=== PATIENT | male | born 1965 | race African-American/Black ===

== ENCOUNTER 2017-09-23 09:29 | Inpatient (IN) | payer OTHER ==
[2017-09-23 09:54] VITALS: BMI 26.8
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
[2017-09-23] MEDS ORDERED: MAG HYDROX/AL HYDROX/SIMETH 30 ML UNIT-DOSE CUP PO PRN (14:28)
[2017-09-23] MEDS ORDERED: MAGNESIUM HYDROX 2400MG/30ML ORAL SUSPENSION 30 ML CUP PO PRN (14:28)
[2017-09-23] MEDS ORDERED: LOPERAMIDE HCL 2 MG CAPSULE PO PRN (14:28)
[2017-09-23] MEDS ORDERED: guaiFENesin/D-METHORPHAN HB 10 ML UNIT-DOSE CUPS PO PRN (14:28)
[2017-09-23] MEDS ORDERED: MAGNESIUM CITRATE 300 ML BOTTLE PO PRN (14:28)
[2017-09-23] MEDS ORDERED: MENTHOL/PHENOL 1 EACH UD MM PRN (14:28)
[2017-09-23] MEDS ORDERED: P-EPHED 60MG/TRIPROLIDI 2.5MG TABLET PO PRN (14:28)
[2017-09-23] MEDS ORDERED: ACETAMINOPHEN 325 MG TABLET (FP) PO PRN (14:28)
[2017-09-23] MEDS ORDERED: chlordiazePOXIDE HCL 25 MG CAPSULE PO PRN (14:28)
[2017-09-23] MEDS ORDERED: chlordiazePOXIDE HCL 25 MG CAPSULE PO ONE (15:01)
[2017-09-23] MEDS: chlordiazePOXIDE HCL 25 MG CAPSULE PO SCH ×2 (17:26→22:09)
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
[2017-09-23] MEDS: DOCUSATE SODIUM 100 MG CAPSULE (FP) PO SCH (22:10)
[2017-09-23] MEDS: THIAMINE HCL 100 MG TABLET (FP) PO SCH (22:10)
[2017-09-23] MEDS: QUEtiapine FUMARATE 200 MG TABLET PO SCH (22:10)
[2017-09-23 23:21] LABS: URINE APPEARANCE TURBID; URINE BILIRUBIN NEGATIVE (NEGATIVE); URINE BLOOD NEGATIVE (NEGATIVE); URINE COLOR YELLOW; URINE GLUCOSE (UA) NEGATIVE (NEGATIVE); URINE KETONE TRACE (NEGATIVE); URINE LEUK ESTERASE NEGATIVE (NEGATIVE); URINE NITRITE NEGATIVE (NEGATIVE); URINE PROTEIN NEGATIVE (NEGATIVE)
[2017-09-24] MEDS: chlordiazePOXIDE HCL 25 MG CAPSULE PO SCH ×4 (06:38→22:13)
[2017-09-24] MEDS: DOCUSATE SODIUM 100 MG CAPSULE (FP) PO SCH ×3 (06:38→22:14)
[2017-09-24] MEDS ORDERED: PANTOPRAZOLE 40 MG TABLET (FP) PO SCH (10:00)
[2017-09-24] MEDS: PRENATAL VITAMINS W/ FOLIC ACID TABLET (FP) PO SCH (10:05)
[2017-09-24] MEDS: DIVALPROEX SODIUM 250 MG TABLET E.C. (FP) PO SCH ×2 (10:05→22:13)
[2017-09-24] MEDS: SERTRALINE HCL 50 MG TABLET (FP) PO SCH (10:05)
--- NOTE | 2017-09-24 10:33 | PN ---
S CIWA - CIWA Score Nausea/Vomitin Muscle Tremors: 3 Anxiety: 3 Agitation: 2 Paroxysmal Sweats: 3 Orientation: 0-Oriented Tacttile Disturbances: 1-Very Mild Itch/Numbness Auditory Disturbances: 1-Very Mild Visual Disturbances: 1-Very Mild Sensitivity Headache: 2-Mild CIWA-Ar Total Score: 18 BHS Progress Note (SOAP) Subjective: Shakes, sweats, irritability, abdominal cramps and leg pain Objective: 09/24/17 10:32 Vital Signs 09/24/17 09/24/17 09/24/17 03:26 06:22 09:06 Temperature 97.7 F 96.3 F L Pulse Rate 77 120 H Respiratory 18 18 20 Rate Blood Pressure 117/73 128/87 Laboratory Last Values Urine Color Yellow 09/23/17 21:00 Urine Appearance Turbid 09/23/17 21:00 Urine pH 5.0 (5.0-8.0) 09/23/17 21:00 Ur Specific [place] 1.019 (1.001-1.035) 09/23/17 21:00 Urine Protein Negative (NEGATIVE) 09/23/17 21:00 Urine Glucose (UA) Negative (NEGATIVE) 09/23/17 21:00 Urine Ketones Trace (NEGATIVE) H 09/23/17 21:00 Urine Blood Negative (NEGATIVE) 09/23/17 21:00 Urine Nitrite Negative (NEGATIVE) 09/23/17 21:00 Urine Bilirubin Negative (NEGATIVE) 09/23/17 21:00 Urine Urobilinogen 2.0 mg/dL (0.2-1.0) 09/23/17 21:00 Ur Leukocyte Esterase Negative (NEGATIVE) 09/23/17 21:00 UA noted, labs pending Assessment: 09/24/17 10:32 Withdrawal sx Plan: Continue detox
[2017-09-24 10:45] LABS: CHLORIDE 100 mmol/L (98-107); SODIUM 136 mmol/L (136-145)
[2017-09-24 10:48] LABS: HEMATOCRIT 38.5 % (35.4-49); HEMOGLOBIN 12.7 GM/dL (11.7-16.9); MEAN CELL VOLUME 93.7 fl (80-96); MEAN PLT VOLUME 9.7 fl (7.5-11.1); PLATELET COUNT 160 K/MM3 (134-434); RBC 4.11 M/mm3 (4.00-5.60); RDW 15.8 % (11.9-15.9); WHITE BLOOD COUNT 5.2 K/mm3 (4.0-10.0)
[2017-09-24 10:57] LABS: ALBUMIN 4.4 g/dl (3.4-5.0); ALK PHOS 81 U/L (45-117); ANION GAP 8 (8-16); BILIRUBIN,TOTAL 0.6 mg/dL (0.2-1.0); BLOOD UREA NITROGEN 10 mg/dL (7-18); CALCIUM 8.4 mg/dL (8.5-10.1); CO2 28 mmol/L (21-32); CREATININE 0.8 mg/dL (0.7-1.3); GLUCOSE,RANDOM 112 mg/dL (74-106); SGOT/AST 55 U/L (15-37); SGPT/ALT 68 U/L (12-78); TOT PROT 8.1 g/dl (6.4-8.2)
--- NOTE | 2017-09-24 16:58 | EKG ---
Test Reason : Blood Pressure : / mmHG Vent. Rate : 083 BPM Atrial Rate : 083 BPM P-R Int : 148 ms QRS Dur : 076 ms QT Int : 394 ms P-R-T Axes : 039 054 047 degrees QTc Int : 462 ms NORMAL SINUS RHYTHM WITH SINUS ARRHYTHMIA MODERATE VOLTAGE CRITERIA FOR LVH, MAY BE NORMAL VARIANT CANNOT RULE OUT SEPTAL INFARCT , AGE UNDETERMINED ABNORMAL ECG NO PREVIOUS ECGS AVAILABLE Confirmed by MIQUEL TOM MD ([id number]) on 09/24/2017 4:58:07 PM Referred By: Confirmed By:MIQUEL TOM MD
[2017-09-24] MEDS: IBUPROFEN 400 MG TABLET (FP) PO PRN (18:04)
[2017-09-24] MEDS: THIAMINE HCL 100 MG TABLET (FP) PO SCH (22:13)
[2017-09-24] MEDS: QUEtiapine FUMARATE 200 MG TABLET PO SCH (22:13)
[2017-09-24] MEDS: hydrOXYzine PAMOATE 50 MG CAPSULE (FP) PO PRN (22:19)
[2017-09-25] MEDS: chlordiazePOXIDE HCL 25 MG CAPSULE PO SCH ×2 (06:22→10:15)
[2017-09-25] MEDS: IBUPROFEN 400 MG TABLET (FP) PO PRN ×2 (06:23→17:42)
[2017-09-25] MEDS: DOCUSATE SODIUM 100 MG CAPSULE (FP) PO SCH ×3 (06:23→23:04)
[2017-09-25] MEDS: PANTOPRAZOLE 40 MG TABLET (FP) PO SCH (08:19)
--- NOTE | 2017-09-25 10:11 | PN ---
Psychiatric Progress Note Vital Signs: Vital Signs Period Temp Pulse Resp BP Sys/Traylor Pulse Ox Last 24 Hr 97.2 F-98.3 F 67-96 16-20 108-135/62-80 Date of Session: 09/25/17 Chief Complaint:: Follow up HPI: Patient with history of Schizoaffective Disorder, pplysubstance dependence admitted on 09/23/11 for alcohol detoxification Current Medications: Active Medications Generic Name Dose Route Start Last Admin Trade Name Freq PRN Reason Stop Dose Admin Acetaminophen 650 mg 09/23/17 14:28 Tylenol - PO Q4H PRN FEVER Al Hydroxide/Mg Hydroxide 30 ml 09/23/17 14:28 Mylanta Oral Suspension - PO Q6H PRN DYSPEPSIA Chlordiazepoxide HCl 25 mg 09/24/17 17:00 09/25/17 06:22 Librium - PO 09/25/17 11:01 25 mg [id number] JUSTYNA Administration Chlordiazepoxide HCl 15 mg 09/25/17 17:00 Librium - PO 09/26/17 11:01 [id number] JUSTYNA Chlordiazepoxide HCl 25 mg 09/23/17 14:28 09/24/17 07:29 Librium - PO 09/26/17 14:27 25 mg Q4H PRN Administration WITHDRAWAL(CONT SUBST) Chlordiazepoxide HCl 10 mg 09/26/17 17:00 Librium - PO 09/27/17 11:01 [id number] JUSTYNA Divalproex Sodium 250 mg 09/24/17 10:00 09/24/17 22:13 Depakote - PO 250 mg BID JUSTYNA Administration Docusate Sodium 100 mg 09/23/17 22:00 09/25/17 06:23 Colace - PO 100 mg TID JUSTYNA Administration Eucalyptus/Menthol/Phenol/Sorbitol 1 each 09/23/17 14:28 Cepastat Lozenge - MM Q4H PRN SORE THROAT Guaifenesin 10 ml 09/23/17 14:28 Robitussin Dm - PO Q6H PRN COUGH Hydroxyzine Pamoate 50 mg 09/23/17 14:28 09/24/17 22:19 Vistaril - PO 50 mg Q4H PRN Administration AGITATION Ibuprofen 400 mg 09/23/17 14:28 09/25/17 06:23 Motrin - PO 400 mg Q6H PRN Administration PAIN LEVEL 4-6 Loperamide HCl 4 mg 09/23/17 14:28 Imodium - PO Q6H PRN DIARRHEA Magnesium Citrate 300 ml 09/23/17 14:28 Citroma - PO Q48H PRN CONSTIPATION Magnesium Hydroxide 30 ml 09/23/17 14:28 Milk Of Magnesia - PO DAILY PRN CONSTIPATION Pantoprazole Sodium 40 mg 09/25/17 07:00 09/25/17 08:19 Protonix - PO 40 mg DAILY@0700 JUSTYNA Administration Multivit/Folic Acid/Iron 1 tab 09/24/17 10:00 09/24/17 10:05 Vitamins (Sjr) - PO 1 tab DAILY JUSTYNA Administration Pseudoephedrine/Triprolidine 1 combo 09/23/17 14:28 Actifed - PO TID PRN NASAL CONGESTION Quetiapine Fumarate 200 mg 09/23/17 22:00 09/24/17 22:13 Seroquel - PO 200 mg HS UJSTYNA Administration Sertraline HCl 100 mg 09/24/17 10:00 09/24/17 10:05 Zoloft - PO 100 mg DAILY JUSTYNA Administration Thiamine HCl 100 mg 09/23/17 22:00 09/24/17 22:13 Vitamin B1 - PO 100 mg HS JUSTYNA Administration Medication(s) Change(s): Increase Seroquel dosage to 100 mg daily & 300 mg HS Current Side Effect: No Lab tests ordered: Yes Lab tests reviewed: Yes Provider note:: Patient requests that his Seroquel dosage be adjusted. He said that he was on Seroquel 200 mg daily & 400 mg HS prior to current admission. He saw a psychiatrist on admission who ordered Seroquel 200 mg po HS with the promise to gradually raise dosage to prior to admission dose. He complains that he is still geeting 200 mg po HS. Requests that Seroquel be increased to 100 mg daily & 300 mg HS Total face to face time:: 25 Mental Status Exam - Mental Status Exam Alert and Oriented to: Time, Place, Person Cognitive Function: Fair Mood: Hopeful, Euthymic Affect: Appropriate Patient Behavior: Cooperative Speech Pattern: Clear Voice Loudness: Normal Thought Process: Intact, Goal Oriented Hallucinations: Denies Homicidal Ideation: Denies Insight/Judgement: Fair, Poor Sleep: Poorly Appetite: Good Muscle strength/Tone: Normal Gait/Station: Normal Psychiatric Treatment Plan - Problem List (1) Schizoaffective disorder Current Visit: Yes (2) Alcohol dependence with uncomplicated withdrawal Current Visit: Yes (3) Cannabis dependence Current Visit: Yes (4) Nicotine dependence Current Visit: Yes Qualifiers: Nicotine product type: cigarettes Substance use status: uncomplicated Qualified Code(s): F17.210 - Nicotine dependence, cigarettes, uncomplicated Initial treatment plan: 1) Discontinue Seroquel 200 mg po HS. 2) Start Seroquel 100 mg daily & 300 mg HS. 3) Continue inpatient detoxification
[2017-09-25] MEDS: SERTRALINE HCL 50 MG TABLET (FP) PO SCH (10:15)
[2017-09-25] MEDS: PRENATAL VITAMINS W/ FOLIC ACID TABLET (FP) PO SCH (10:15)
[2017-09-25] MEDS: DIVALPROEX SODIUM 250 MG TABLET E.C. (FP) PO SCH ×2 (10:15→23:05)
[2017-09-25] MEDS: QUEtiapine FUMARATE 100 MG TABLET (FP) PO SCH (12:42)
--- NOTE | 2017-09-25 14:25 | PN ---
S CIWA - CIWA Score Nausea/Vomitin Muscle Tremors: 3 Anxiety: 3 Agitation: 3 Paroxysmal Sweats: 2 Orientation: 0-Oriented Tacttile Disturbances: 0-None Auditory Disturbances: 0-None Visual Disturbances: 0-None Headache: 2-Mild CIWA-Ar Total Score: 15 S Progress Note (SOAP) Subjective: Headaches Sweats Tremors Objective: 09/25/17 14:23 no acute distress Laboratory Last Values WBC 5.2 K/mm3 (4.0-10.0) 09/24/17 06:00 RBC 4.11 M/mm3 (4.00-5.60) 09/24/17 06:00 Hgb 12.7 GM/dL (11.7-16.9) 09/24/17 06:00 Hct 38.5 % (35.4-49) 09/24/17 06:00 MCV 93.7 fl (80-96) 09/24/17 06:00 MCH 31.0 pg (25.7-33.7) 09/24/17 06:00 MCHC 33.0 g/dl (32.0-35.9) 09/24/17 06:00 RDW 15.8 % (11.9-15.9) 09/24/17 06:00 Plt Count 160 K/MM3 (134-434) 09/24/17 06:00 MPV 9.7 fl (7.5-11.1) 09/24/17 06:00 Sodium 136 mmol/L (136-145) 09/24/17 06:00 Potassium 4.0 mmol/L (3.5-5.1) 09/24/17 06:00 Chloride 100 mmol/L (98-107) 09/24/17 06:00 Carbon Dioxide 28 mmol/L (21-32) 09/24/17 06:00 Anion Gap 8 (8-16) 09/24/17 06:00 BUN 10 mg/dL (7-18) D 09/24/17 06:00 Creatinine 0.8 mg/dL (0.7-1.3) 09/24/17 06:00 Creat Clearance w eGFR > 60 (>60) 09/24/17 06:00 Random Glucose 112 mg/dL (74-106) H 09/24/17 06:00 Calcium 8.4 mg/dL (8.5-10.1) L 09/24/17 06:00 Total Bilirubin 0.6 mg/dL (0.2-1.0) 09/24/17 06:00 AST 55 U/L (15-37) H D 09/24/17 06:00 ALT 68 U/L (12-78) D 09/24/17 06:00 Alkaline Phosphatase 81 U/L (45-117) D 09/24/17 06:00 Total Protein 8.1 g/dl (6.4-8.2) 09/24/17 06:00 Albumin 4.4 g/dl (3.4-5.0) 09/24/17 06:00 Urine Color Yellow 09/23/17 21:00 Urine Appearance Turbid 09/23/17 21:00 Urine pH 5.0 (5.0-8.0) 09/23/17 21:00 Ur Specific [place] 1.019 (1.001-1.035) 09/23/17 21:00 Urine Protein Negative (NEGATIVE) 09/23/17 21:00 Urine Glucose (UA) Negative (NEGATIVE) 09/23/17 21:00 Urine Ketones Trace (NEGATIVE) H 09/23/17 21:00 Urine Blood Negative (NEGATIVE) 09/23/17 21:00 Urine Nitrite Negative (NEGATIVE) 09/23/17 21:00 Urine Bilirubin Negative (NEGATIVE) 09/23/17 21:00 Urine Urobilinogen 2.0 mg/dL (0.2-1.0) 09/23/17 21:00 Ur Leukocyte Esterase Negative (NEGATIVE) 09/23/17 21:00 Valproic Acid < 3.000 ug/ml (50-100) L 09/24/17 09:00 RPR Titer Nonreactive (NONREACTIVE) 09/24/17 06:00 labs noted Vital Signs Temperature 97.9 F 09/25/17 14:09 Pulse Rate 87 09/25/17 14:09 Respiratory Rate 16 09/25/17 14:09 Blood Pressure 134/86 09/25/17 14:09 O2 Sat by Pulse Oximetry (%) Assessment: 09/25/17 14:24 withdrawal sx Plan: continue detox Increase fluid intake
[2017-09-25] MEDS: chlordiazePOXIDE 5 MG CAPSULE PO SCH ×2 (17:40→23:05)
[2017-09-25] MEDS: QUEtiapine FUMARATE 300 MG TABLET PO SCH (23:04)
[2017-09-25] MEDS: THIAMINE HCL 100 MG TABLET (FP) PO SCH (23:05)
[2017-09-26] MEDS: DOCUSATE SODIUM 100 MG CAPSULE (FP) PO SCH ×3 (06:13→22:42)
[2017-09-26] MEDS: PANTOPRAZOLE 40 MG TABLET (FP) PO SCH (06:13)
[2017-09-26] MEDS: chlordiazePOXIDE 5 MG CAPSULE PO SCH ×2 (06:13→11:55)
[2017-09-26] MEDS: IBUPROFEN 400 MG TABLET (FP) PO PRN (06:15)
--- NOTE | 2017-09-26 11:43 | PN ---
BHS Progress Note (SOAP) Subjective: ANXIETY,SWEATS, ITCHY RASH BOTH SHOULDERS. Objective: 09/26/17 11:43 Vital Signs Temperature 96.4 F L 09/26/17 09:19 Pulse Rate 100 H 09/26/17 09:19 Respiratory Rate 18 09/26/17 09:19 Blood Pressure 126/76 09/26/17 09:19 O2 Sat by Pulse Oximetry (%) Laboratory Last Values WBC 5.2 K/mm3 (4.0-10.0) 09/24/17 06:00 RBC 4.11 M/mm3 (4.00-5.60) 09/24/17 06:00 Hgb 12.7 GM/dL (11.7-16.9) 09/24/17 06:00 Hct 38.5 % (35.4-49) 09/24/17 06:00 MCV 93.7 fl (80-96) 09/24/17 06:00 MCH 31.0 pg (25.7-33.7) 09/24/17 06:00 MCHC 33.0 g/dl (32.0-35.9) 09/24/17 06:00 RDW 15.8 % (11.9-15.9) 09/24/17 06:00 Plt Count 160 K/MM3 (134-434) 09/24/17 06:00 MPV 9.7 fl (7.5-11.1) 09/24/17 06:00 Sodium 136 mmol/L (136-145) 09/24/17 06:00 Potassium 4.0 mmol/L (3.5-5.1) 09/24/17 06:00 Chloride 100 mmol/L (98-107) 09/24/17 06:00 Carbon Dioxide 28 mmol/L (21-32) 09/24/17 06:00 Anion Gap 8 (8-16) 09/24/17 06:00 BUN 10 mg/dL (7-18) D 09/24/17 06:00 Creatinine 0.8 mg/dL (0.7-1.3) 09/24/17 06:00 Creat Clearance w eGFR > 60 (>60) 09/24/17 06:00 Random Glucose 112 mg/dL (74-106) H 09/24/17 06:00 Calcium 8.4 mg/dL (8.5-10.1) L 09/24/17 06:00 Total Bilirubin 0.6 mg/dL (0.2-1.0) 09/24/17 06:00 AST 55 U/L (15-37) H D 09/24/17 06:00 ALT 68 U/L (12-78) D 09/24/17 06:00 Alkaline Phosphatase 81 U/L (45-117) D 09/24/17 06:00 Total Protein 8.1 g/dl (6.4-8.2) 09/24/17 06:00 Albumin 4.4 g/dl (3.4-5.0) 09/24/17 06:00 Urine Color Yellow 09/23/17 21:00 Urine Appearance Turbid 09/23/17 21:00 Urine pH 5.0 (5.0-8.0) 09/23/17 21:00 Ur Specific [place] 1.019 (1.001-1.035) 09/23/17 21:00 Urine Protein Negative (NEGATIVE) 09/23/17 21:00 Urine Glucose (UA) Negative (NEGATIVE) 09/23/17 21:00 Urine Ketones Trace (NEGATIVE) H 09/23/17 21:00 Urine Blood Negative (NEGATIVE) 09/23/17 21:00 Urine Nitrite Negative (NEGATIVE) 09/23/17 21:00 Urine Bilirubin Negative (NEGATIVE) 09/23/17 21:00 Urine Urobilinogen 2.0 mg/dL (0.2-1.0) 09/23/17 21:00 Ur Leukocyte Esterase Negative (NEGATIVE) 09/23/17 21:00 Valproic Acid < 3.000 ug/ml (50-100) L 09/24/17 09:00 RPR Titer Nonreactive (NONREACTIVE) 09/24/17 06:00 Assessment: 09/26/17 11:43 WITHDRAWAL SX Plan: CONTINUE DETOX
[2017-09-26] MEDS: SERTRALINE HCL 50 MG TABLET (FP) PO SCH (11:55)
[2017-09-26] MEDS: QUEtiapine FUMARATE 100 MG TABLET (FP) PO SCH (11:56)
[2017-09-26] MEDS: DIVALPROEX SODIUM 250 MG TABLET E.C. (FP) PO SCH ×2 (11:56→22:42)
[2017-09-26] MEDS: PRENATAL VITAMINS W/ FOLIC ACID TABLET (FP) PO SCH (11:56)
[2017-09-26] MEDS: chlordiazePOXIDE HCL 10 MG CAPSULE PO SCH ×2 (17:38→22:42)
[2017-09-26] MEDS: QUEtiapine FUMARATE 300 MG TABLET PO SCH (22:42)
[2017-09-26] MEDS: THIAMINE HCL 100 MG TABLET (FP) PO SCH (22:43)
[2017-09-26] MEDS: hydrOXYzine PAMOATE 50 MG CAPSULE (FP) PO PRN (22:44)
[2017-09-27] MEDS: DOCUSATE SODIUM 100 MG CAPSULE (FP) PO SCH (06:23)
[2017-09-27] MEDS: chlordiazePOXIDE HCL 10 MG CAPSULE PO SCH ×2 (06:23→10:46)
[2017-09-27] MEDS: PANTOPRAZOLE 40 MG TABLET (FP) PO SCH (06:24)
[2017-09-27] MEDS: IBUPROFEN 400 MG TABLET (FP) PO PRN (08:06)
[2017-09-27] MEDS: DIVALPROEX SODIUM 250 MG TABLET E.C. (FP) PO SCH (09:50)
[2017-09-27] MEDS: SERTRALINE HCL 50 MG TABLET (FP) PO SCH (09:50)
[2017-09-27] MEDS: PRENATAL VITAMINS W/ FOLIC ACID TABLET (FP) PO SCH (09:50)
[2017-09-27] MEDS: QUEtiapine FUMARATE 100 MG TABLET (FP) PO SCH (09:50)
[2017-09-27 10:09] VITALS: BP 133/87; PULSE 95; TEMP 96.2
--- NOTE | 2017-09-27 10:49 | DS ---
[facility] Detox Discharge Summary Admission Date: 09/23/17 Discharge Date: 09/27/17 - History Present History: Alcohol Dependence, Cannabis Dependence Additional Comments: DETOX COMPLETED. ALERT O X 3. NAD. Pertinent Past History: SEE DX BELOW - Physical Exam Results Vital Signs: Vital Signs Temperature 96.2 F L 09/27/17 10:08 Pulse Rate 95 H 09/27/17 10:08 Respiratory Rate 18 09/27/17 10:08 Blood Pressure 133/87 09/27/17 10:08 O2 Sat by Pulse Oximetry (%) Pertinent Admission Physical Exam Findings: WITHDRAWAL SX Laboratory Last Values WBC 5.2 K/mm3 (4.0-10.0) 09/24/17 06:00 RBC 4.11 M/mm3 (4.00-5.60) 09/24/17 06:00 Hgb 12.7 GM/dL (11.7-16.9) 09/24/17 06:00 Hct 38.5 % (35.4-49) 09/24/17 06:00 MCV 93.7 fl (80-96) 09/24/17 06:00 MCH 31.0 pg (25.7-33.7) 09/24/17 06:00 MCHC 33.0 g/dl (32.0-35.9) 09/24/17 06:00 RDW 15.8 % (11.9-15.9) 09/24/17 06:00 Plt Count 160 K/MM3 (134-434) 09/24/17 06:00 MPV 9.7 fl (7.5-11.1) 09/24/17 06:00 Sodium 136 mmol/L (136-145) 09/24/17 06:00 Potassium 4.0 mmol/L (3.5-5.1) 09/24/17 06:00 Chloride 100 mmol/L (98-107) 09/24/17 06:00 Carbon Dioxide 28 mmol/L (21-32) 09/24/17 06:00 Anion Gap 8 (8-16) 09/24/17 06:00 BUN 10 mg/dL (7-18) D 09/24/17 06:00 Creatinine 0.8 mg/dL (0.7-1.3) 09/24/17 06:00 Creat Clearance w eGFR > 60 (>60) 09/24/17 06:00 Random Glucose 112 mg/dL (74-106) H 09/24/17 06:00 Calcium 8.4 mg/dL (8.5-10.1) L 09/24/17 06:00 Total Bilirubin 0.6 mg/dL (0.2-1.0) 09/24/17 06:00 AST 55 U/L (15-37) H D 09/24/17 06:00 ALT 68 U/L (12-78) D 09/24/17 06:00 Alkaline Phosphatase 81 U/L (45-117) D 09/24/17 06:00 Total Protein 8.1 g/dl (6.4-8.2) 09/24/17 06:00 Albumin 4.4 g/dl (3.4-5.0) 09/24/17 06:00 Urine Color Yellow 09/23/17 21:00 Urine Appearance Turbid 09/23/17 21:00 Urine pH 5.0 (5.0-8.0) 09/23/17 21:00 Ur Specific [place] 1.019 (1.001-1.035) 09/23/17 21:00 Urine Protein Negative (NEGATIVE) 09/23/17 21:00 Urine Glucose (UA) Negative (NEGATIVE) 09/23/17 21:00 Urine Ketones Trace (NEGATIVE) H 09/23/17 21:00 Urine Blood Negative (NEGATIVE) 09/23/17 21:00 Urine Nitrite Negative (NEGATIVE) 09/23/17 21:00 Urine Bilirubin Negative (NEGATIVE) 09/23/17 21:00 Urine Urobilinogen 2.0 mg/dL (0.2-1.0) 09/23/17 21:00 Ur Leukocyte Esterase Negative (NEGATIVE) 09/23/17 21:00 Valproic Acid < 3.000 ug/ml (50-100) L 09/24/17 09:00 RPR Titer Nonreactive (NONREACTIVE) 09/24/17 06:00 - Treatment Hospital Course: Detox Protocol Followed, Detoxed Safely, Responded well, Discharged Condition Good - Medication Discharge Medications: Ambulatory Orders Docusate Sodium [Colace -] 100 mg PO TID #90 capsule 12/07/13 Esomeprazole Mag Trihydrate [Nexium] 40 mg PO DAILY #30 capsule.ec 12/07/13 Divalproex [Depakote -] 500 mg PO BID #60 tablet.ec 12/26/14 Quetiapine Fumarate [Seroquel -] 200 mg PO DAILY #30 tablet 12/26/14 Quetiapine Fumarate [Seroquel -] 400 mg PO HS #30 tablet 12/26/14 Trazodone HCl [Desyrel -] 200 mg PO HS #30 tablet 12/26/14 Sertraline HCl [Zoloft -] 100 mg PO DAILY 09/23/17 - Diagnosis (1) Alcohol dependence with uncomplicated withdrawal Current Visit: Yes Status: Acute (2) Use of cane as ambulatory aid Current Visit: Yes Status: Chronic (3) Nicotine dependence Current Visit: Yes Status: Acute Qualifiers: Nicotine product type: cigarettes Substance use status: uncomplicated Qualified Code(s): F17.210 - Nicotine dependence, cigarettes, uncomplicated (4) ARTHRITS Current Visit: Yes Status: Chronic (5) GERD (gastroesophageal reflux disease) Current Visit: Yes Status: Chronic Qualifiers: Esophagitis presence: esophagitis presence not specified Qualified Code(s) : K21.9 - Gastro-esophageal reflux disease without esophagitis (6) History of total bilateral knee replacement Current Visit: Yes Status: Chronic (7) Constipation by delayed colonic transit Current Visit: Yes Status: Chronic - AMA Did Patient Leave Against Medical Advice: No
== END 2017-09-27 11:55 | disposition home or self-care (01) | DRG 775 ==
LOC: YASAS 09:29 → Y3N 12:51
PROVIDERS: ADMIT Internal Medicine; ATTEND Internal Medicine
PROC: HZ2ZZZZ Detoxification Services for Substance Abuse Treatment (ICD-10-PCS; principal; 2017-09-23)
DX: F10.230 Alcohol dependence with withdrawal, uncomplicated (principal); F12.20 Cannabis dependence, uncomplicated; F17.210 Nicotine dependence, cigarettes, uncomplicated; F25.9 Schizoaffective disorder, unspecified; F31.9 Bipolar disorder, unspecified; F41.9 Anxiety disorder, unspecified; K59.01 Slow transit constipation; K21.9 Gastro-esophageal reflux disease without esophagitis; M19.90 Unspecified osteoarthritis, unspecified site; G47.00 Insomnia, unspecified; R26.2 Difficulty in walking, not elsewhere classified; Z99.89 Dependence on other enabling machines and devices; Z88.0 Allergy status to penicillin; Z96.653 Presence of artificial knee joint, bilateral; Z59.0 Homelessness
CPT/HCPCS: 36415; 80053; 80164; 81003; 85027; 86593; 93005; 93010

== ENCOUNTER 2017-09-27 12:16 | Inpatient (IN) | payer OTHER ==
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
[2017-09-27] MEDS ORDERED: QUEtiapine FUMARATE 100 MG TABLET (FP) PO ONE (15:18)
--- NOTE | 2017-09-27 16:17 | HP ---
[facility] Rehab Assess/Revision - Admission History Admitted to Rehab from: [facility] Date of Admission to Rehab: 09/27/17 - Vital signs Vital Signs: Vital Signs Period Temp Pulse Resp BP Sys/Traylor Pulse Ox Last 24 Hr 97.3 F 18 121/73 - Findings Detox History & Physical reviewed: Yes Concur with findings: Yes Comments/Additional Findings: transferred from detox to rehab admission as per protocol Inpatient Rehab Admission - Initial Determination Are CD services needed?: Yes Free of communicable disease: Yes Not in need of hospitalization: Yes - Rehab Admission Criteria Previous failed treatment: Yes Poor recovery environment: Yes Comorbidities: Yes Lacks judgement: No Patient is meeting Inpatient Rehab admission criteria:: Yes
[2017-09-27] MEDS ORDERED: P-EPHED 60MG/TRIPROLIDI 2.5MG TABLET PO PRN (16:18)
[2017-09-27] MEDS ORDERED: MAG HYDROX/AL HYDROX/SIMETH 30 ML UNIT-DOSE CUP PO PRN (16:18)
[2017-09-27] MEDS ORDERED: NICOTINE POLACRILEX 2 MG GUM BUC PRN (16:18)
[2017-09-27] MEDS ORDERED: LOPERAMIDE HCL 2 MG CAPSULE PO PRN (16:18)
[2017-09-27] MEDS ORDERED: MAGNESIUM CITRATE 300 ML BOTTLE PO PRN (16:18)
[2017-09-27] MEDS ORDERED: guaiFENesin/D-METHORPHAN HB 10 ML UNIT-DOSE CUPS PO PRN (16:18)
[2017-09-27] MEDS ORDERED: IBUPROFEN 400 MG TABLET (FP) PO PRN (16:18)
[2017-09-27] MEDS ORDERED: MENTHOL/PHENOL 1 EACH UD MM PRN (16:18)
[2017-09-27] MEDS ORDERED: NICOTINE 14 MG/24 HOURS TOPICAL PATCH TD PRN (17:00)
[2017-09-27] MEDS: traZODone HCL 100 MG TABLET (FP) PO SCH (21:32)
[2017-09-27] MEDS: QUEtiapine FUMARATE 400 MG TABLET PO SCH (21:32)
[2017-09-27] MEDS: THIAMINE HCL 100 MG TABLET (FP) PO SCH (21:32)
[2017-09-27] MEDS: DIVALPROEX SODIUM 500 MG TABLET E.C. PO SCH (21:32)
[2017-09-27] MEDS: DOCUSATE SODIUM 100 MG CAPSULE (FP) PO SCH (21:32)
[2017-09-28] MEDS: DOCUSATE SODIUM 100 MG CAPSULE (FP) PO SCH ×3 (06:00→22:22)
[2017-09-28] MEDS ORDERED: SERTRALINE HCL 50 MG TABLET (FP) PO SCH (10:00)
[2017-09-28] MEDS: PRENATAL VITAMINS W/ FOLIC ACID TABLET (FP) PO SCH (10:10)
[2017-09-28] MEDS: PANTOPRAZOLE 40 MG TABLET (FP) PO SCH (10:11)
[2017-09-28] MEDS: DIVALPROEX SODIUM 500 MG TABLET E.C. PO SCH ×2 (10:11→22:22)
[2017-09-28] MEDS: QUEtiapine FUMARATE 200 MG TABLET PO SCH (10:11)
--- NOTE | 2017-09-28 13:25 | PN ---
S Progress Note Note: patient reports was on Zoloft 200 mg po daily and asked to adjust the dosage, will increase to 200 mg po daily.
[2017-09-28] MEDS ORDERED: SENNOSIDES 8.6MG TABLET (FP) PO ONE (14:31)
--- NOTE | 2017-09-28 14:37 | PN ---
[facility] Progress Note (SOAP) Subjective: c/o constipation Objective: 09/28/17 14:36 Vital Signs - 24 hr 09/28/17 09/28/17 09/28/17 00:30 03:30 06:38 Temperature 97.6 F Pulse Rate 116 H Respiratory 20 20 18 Rate Blood Pressure 122/81 Laboratory Tests 09/28/17 05:45 HIV 1&2 Antibody Screen Negative HIV P24 Antigen Negative labs reveiwed Assessment: 09/28/17 14:37 constipation 2/2 medication colace and senna qhs
[2017-09-28] MEDS: NAPROXEN 500 MG TABLET (FP) PO SCH ×2 (14:55→22:23)
[2017-09-28] MEDS: LIDOCAINE 5% TOPICAL PATCH TP SCH (14:55)
[2017-09-28] MEDS: LIDOCAINE PATCH REMOVAL MC SCH (22:22)
[2017-09-28] MEDS: traZODone HCL 100 MG TABLET (FP) PO SCH (22:22)
[2017-09-28] MEDS: SENNOSIDES 8.6MG TABLET (FP) PO SCH (22:23)
[2017-09-28] MEDS: THIAMINE HCL 100 MG TABLET (FP) PO SCH (22:23)
[2017-09-28] MEDS: QUEtiapine FUMARATE 400 MG TABLET PO SCH (22:23)
[2017-09-29] MEDS: DOCUSATE SODIUM 100 MG CAPSULE (FP) PO SCH ×2 (00:22→21:28)
[2017-09-29] MEDS: traZODone HCL 100 MG TABLET (FP) PO SCH ×2 (00:22→21:28)
[2017-09-29] MEDS: SENNOSIDES 8.6MG TABLET (FP) PO SCH ×2 (00:22→21:27)
[2017-09-29] MEDS: NAPROXEN 500 MG TABLET (FP) PO SCH ×3 (00:22→21:27)
[2017-09-29] MEDS: DIVALPROEX SODIUM 500 MG TABLET E.C. PO SCH ×3 (00:23→21:27)
[2017-09-29] MEDS: QUEtiapine FUMARATE 400 MG TABLET PO SCH ×2 (00:23→21:29)
[2017-09-29] MEDS: ACETAMINOPHEN 325 MG TABLET (FP) PO PRN (06:47)
[2017-09-29] MEDS: LIDOCAINE 5% TOPICAL PATCH TP SCH (10:40)
[2017-09-29] MEDS: SERTRALINE HCL 50 MG TABLET (FP) PO SCH (10:40)
[2017-09-29] MEDS: PANTOPRAZOLE 40 MG TABLET (FP) PO SCH (10:40)
[2017-09-29] MEDS: QUEtiapine FUMARATE 200 MG TABLET PO SCH (10:40)
[2017-09-29] MEDS: PRENATAL VITAMINS W/ FOLIC ACID TABLET (FP) PO SCH (10:40)
[2017-09-29] MEDS: THIAMINE HCL 100 MG TABLET (FP) PO SCH (21:27)
[2017-09-29] MEDS: LIDOCAINE PATCH REMOVAL MC SCH (21:29)
[2017-09-30] MEDS: HYDROCORTISONE 0.5% TOPICAL CREAM 30 GM TUBE TP PRN (06:57)
[2017-09-30] MEDS: ACETAMINOPHEN 325 MG TABLET (FP) PO PRN (07:01)
[2017-09-30] MEDS: DIVALPROEX SODIUM 500 MG TABLET E.C. PO SCH ×2 (11:28→21:51)
[2017-09-30] MEDS: PANTOPRAZOLE 40 MG TABLET (FP) PO SCH (11:28)
[2017-09-30] MEDS: NAPROXEN 500 MG TABLET (FP) PO SCH ×2 (11:28→21:50)
[2017-09-30] MEDS: QUEtiapine FUMARATE 200 MG TABLET PO SCH (11:28)
[2017-09-30] MEDS: LIDOCAINE 5% TOPICAL PATCH TP SCH (11:29)
[2017-09-30] MEDS: SERTRALINE HCL 50 MG TABLET (FP) PO SCH (11:29)
[2017-09-30] MEDS: PRENATAL VITAMINS W/ FOLIC ACID TABLET (FP) PO SCH (11:32)
[2017-09-30] MEDS: MAGNESIUM HYDROX 2400MG/30ML ORAL SUSPENSION 30 ML CUP PO PRN (11:35)
[2017-09-30] MEDS: THIAMINE HCL 100 MG TABLET (FP) PO SCH (21:50)
[2017-09-30] MEDS: DOCUSATE SODIUM 100 MG CAPSULE (FP) PO SCH (21:50)
[2017-09-30] MEDS: traZODone HCL 100 MG TABLET (FP) PO SCH (21:51)
[2017-09-30] MEDS: SENNOSIDES 8.6MG TABLET (FP) PO SCH (21:51)
[2017-09-30] MEDS: LIDOCAINE PATCH REMOVAL MC SCH (21:52)
[2017-09-30] MEDS: QUEtiapine FUMARATE 400 MG TABLET PO SCH (21:52)
[2017-10-01] MEDS: QUEtiapine FUMARATE 200 MG TABLET PO SCH (09:58)
[2017-10-01] MEDS: PRENATAL VITAMINS W/ FOLIC ACID TABLET (FP) PO SCH (09:58)
[2017-10-01] MEDS: NAPROXEN 500 MG TABLET (FP) PO SCH ×2 (09:58→22:43)
[2017-10-01] MEDS: SERTRALINE HCL 50 MG TABLET (FP) PO SCH (09:58)
[2017-10-01] MEDS: DIVALPROEX SODIUM 500 MG TABLET E.C. PO SCH ×2 (09:58→22:43)
[2017-10-01] MEDS: LIDOCAINE 5% TOPICAL PATCH TP SCH (09:59)
[2017-10-01] MEDS: PANTOPRAZOLE 40 MG TABLET (FP) PO SCH (09:59)
[2017-10-01] MEDS: MAGNESIUM HYDROX 2400MG/30ML ORAL SUSPENSION 30 ML CUP PO PRN (11:45)
[2017-10-01] MEDS: THIAMINE HCL 100 MG TABLET (FP) PO SCH (22:43)
[2017-10-01] MEDS: DOCUSATE SODIUM 100 MG CAPSULE (FP) PO SCH (22:43)
[2017-10-01] MEDS: LIDOCAINE PATCH REMOVAL MC SCH (22:43)
[2017-10-01] MEDS: SENNOSIDES 8.6MG TABLET (FP) PO SCH (22:43)
[2017-10-01] MEDS: traZODone HCL 100 MG TABLET (FP) PO SCH (22:43)
[2017-10-01] MEDS: QUEtiapine FUMARATE 400 MG TABLET PO SCH (22:43)
[2017-10-02] MEDS: QUEtiapine FUMARATE 400 MG TABLET PO SCH ×2 (00:01→21:16)
[2017-10-02] MEDS: PANTOPRAZOLE 40 MG TABLET (FP) PO SCH (09:51)
[2017-10-02] MEDS: PRENATAL VITAMINS W/ FOLIC ACID TABLET (FP) PO SCH (09:51)
[2017-10-02] MEDS: DIVALPROEX SODIUM 500 MG TABLET E.C. PO SCH ×3 (09:51→21:15)
[2017-10-02] MEDS: NAPROXEN 500 MG TABLET (FP) PO SCH ×3 (09:52→21:15)
[2017-10-02] MEDS: SERTRALINE HCL 50 MG TABLET (FP) PO SCH (09:52)
[2017-10-02] MEDS: QUEtiapine FUMARATE 200 MG TABLET PO SCH (09:52)
[2017-10-02] MEDS: LIDOCAINE 5% TOPICAL PATCH TP SCH (09:53)
[2017-10-02] MEDS: SENNOSIDES 8.6MG TABLET (FP) PO SCH (21:15)
[2017-10-02] MEDS: DOCUSATE SODIUM 100 MG CAPSULE (FP) PO SCH (21:15)
[2017-10-02] MEDS: THIAMINE HCL 100 MG TABLET (FP) PO SCH (21:15)
[2017-10-02] MEDS: traZODone HCL 100 MG TABLET (FP) PO SCH ×2 (21:15)
[2017-10-02] MEDS: LIDOCAINE PATCH REMOVAL MC SCH (21:16)
[2017-10-03] MEDS: PANTOPRAZOLE 40 MG TABLET (FP) PO SCH (11:22)
[2017-10-03] MEDS: QUEtiapine FUMARATE 200 MG TABLET PO SCH (11:22)
[2017-10-03] MEDS: NAPROXEN 500 MG TABLET (FP) PO SCH ×2 (11:22→21:29)
[2017-10-03] MEDS: DIVALPROEX SODIUM 500 MG TABLET E.C. PO SCH ×2 (11:22→21:28)
[2017-10-03] MEDS: PRENATAL VITAMINS W/ FOLIC ACID TABLET (FP) PO SCH (11:22)
[2017-10-03] MEDS: LIDOCAINE 5% TOPICAL PATCH TP SCH (11:22)
[2017-10-03] MEDS: SERTRALINE HCL 50 MG TABLET (FP) PO SCH (11:22)
[2017-10-03] MEDS: HYDROCORTISONE 0.5% TOPICAL CREAM 30 GM TUBE TP PRN (11:23)
[2017-10-03] MEDS: MAGNESIUM HYDROX 2400MG/30ML ORAL SUSPENSION 30 ML CUP PO PRN (11:27)
[2017-10-03] MEDS: DOCUSATE SODIUM 100 MG CAPSULE (FP) PO SCH (21:28)
[2017-10-03] MEDS: THIAMINE HCL 100 MG TABLET (FP) PO SCH (21:28)
[2017-10-03] MEDS: traZODone HCL 100 MG TABLET (FP) PO SCH (21:28)
[2017-10-03] MEDS: SENNOSIDES 8.6MG TABLET (FP) PO SCH (21:28)
[2017-10-03] MEDS: QUEtiapine FUMARATE 400 MG TABLET PO SCH (21:30)
[2017-10-03] MEDS: LIDOCAINE PATCH REMOVAL MC SCH (21:31)
[2017-10-04] MEDS: LIDOCAINE 5% TOPICAL PATCH TP SCH (11:06)
[2017-10-04] MEDS: PANTOPRAZOLE 40 MG TABLET (FP) PO SCH (11:06)
[2017-10-04] MEDS: PRENATAL VITAMINS W/ FOLIC ACID TABLET (FP) PO SCH (11:06)
[2017-10-04] MEDS: NAPROXEN 500 MG TABLET (FP) PO SCH ×2 (11:06→21:25)
[2017-10-04] MEDS: DIVALPROEX SODIUM 500 MG TABLET E.C. PO SCH ×2 (11:06→21:25)
[2017-10-04] MEDS: SERTRALINE HCL 50 MG TABLET (FP) PO SCH (11:07)
[2017-10-04] MEDS: QUEtiapine FUMARATE 200 MG TABLET PO SCH (11:07)
[2017-10-04] MEDS: MAGNESIUM HYDROX 2400MG/30ML ORAL SUSPENSION 30 ML CUP PO PRN (12:00)
[2017-10-04] MEDS: SENNOSIDES 8.6MG TABLET (FP) PO SCH (21:24)
[2017-10-04] MEDS: THIAMINE HCL 100 MG TABLET (FP) PO SCH (21:24)
[2017-10-04] MEDS: DOCUSATE SODIUM 100 MG CAPSULE (FP) PO SCH (21:25)
[2017-10-04] MEDS: traZODone HCL 100 MG TABLET (FP) PO SCH (21:25)
[2017-10-04] MEDS: QUEtiapine FUMARATE 400 MG TABLET PO SCH (21:26)
[2017-10-04] MEDS: LIDOCAINE PATCH REMOVAL MC SCH (21:26)
[2017-10-05] MEDS: SERTRALINE HCL 50 MG TABLET (FP) PO SCH (10:20)
[2017-10-05] MEDS: NAPROXEN 500 MG TABLET (FP) PO SCH ×2 (10:20→21:27)
[2017-10-05] MEDS: QUEtiapine FUMARATE 200 MG TABLET PO SCH (10:20)
[2017-10-05] MEDS: PRENATAL VITAMINS W/ FOLIC ACID TABLET (FP) PO SCH (10:20)
[2017-10-05] MEDS: PANTOPRAZOLE 40 MG TABLET (FP) PO SCH (10:20)
[2017-10-05] MEDS: LIDOCAINE 5% TOPICAL PATCH TP SCH (10:21)
[2017-10-05] MEDS: DIVALPROEX SODIUM 500 MG TABLET E.C. PO SCH ×2 (10:21→21:27)
[2017-10-05] MEDS: THIAMINE HCL 100 MG TABLET (FP) PO SCH (21:27)
[2017-10-05] MEDS: LIDOCAINE PATCH REMOVAL MC SCH (21:27)
[2017-10-05] MEDS: traZODone HCL 100 MG TABLET (FP) PO SCH (21:27)
[2017-10-05] MEDS: QUEtiapine FUMARATE 400 MG TABLET PO SCH (21:27)
[2017-10-05] MEDS: SENNOSIDES 8.6MG TABLET (FP) PO SCH (21:27)
[2017-10-05] MEDS: DOCUSATE SODIUM 100 MG CAPSULE (FP) PO SCH (21:27)
[2017-10-05] MEDS: MAGNESIUM HYDROX 2400MG/30ML ORAL SUSPENSION 30 ML CUP PO PRN (21:30)
[2017-10-06] MEDS: DIVALPROEX SODIUM 500 MG TABLET E.C. PO SCH ×2 (09:36→21:36)
[2017-10-06] MEDS: NAPROXEN 500 MG TABLET (FP) PO SCH ×2 (09:36→21:36)
[2017-10-06] MEDS: SERTRALINE HCL 50 MG TABLET (FP) PO SCH (09:36)
[2017-10-06] MEDS: PRENATAL VITAMINS W/ FOLIC ACID TABLET (FP) PO SCH (09:36)
[2017-10-06] MEDS: QUEtiapine FUMARATE 200 MG TABLET PO SCH (09:37)
[2017-10-06] MEDS: PANTOPRAZOLE 40 MG TABLET (FP) PO SCH (09:37)
[2017-10-06] MEDS: LIDOCAINE 5% TOPICAL PATCH TP SCH (09:37)
[2017-10-06] MEDS: BACITRACIN 0.9 GM PACKET TP SCH ×2 (12:10→21:39)
[2017-10-06] MEDS: DOCUSATE SODIUM 100 MG CAPSULE (FP) PO SCH (21:36)
[2017-10-06] MEDS: traZODone HCL 100 MG TABLET (FP) PO SCH (21:36)
[2017-10-06] MEDS: SENNOSIDES 8.6MG TABLET (FP) PO SCH (21:36)
[2017-10-06] MEDS: LIDOCAINE PATCH REMOVAL MC SCH (21:38)
[2017-10-06] MEDS: THIAMINE HCL 100 MG TABLET (FP) PO SCH (21:38)
[2017-10-06] MEDS: QUEtiapine FUMARATE 400 MG TABLET PO SCH (21:38)
[2017-10-06] MEDS: MAGNESIUM HYDROX 2400MG/30ML ORAL SUSPENSION 30 ML CUP PO PRN (21:41)
[2017-10-07] MEDS: SERTRALINE HCL 50 MG TABLET (FP) PO SCH (10:12)
[2017-10-07] MEDS: BACITRACIN 0.9 GM PACKET TP SCH ×2 (10:12→21:23)
[2017-10-07] MEDS: QUEtiapine FUMARATE 200 MG TABLET PO SCH (10:13)
[2017-10-07] MEDS: DIVALPROEX SODIUM 500 MG TABLET E.C. PO SCH ×2 (10:13→21:22)
[2017-10-07] MEDS: PANTOPRAZOLE 40 MG TABLET (FP) PO SCH (10:13)
[2017-10-07] MEDS: LIDOCAINE 5% TOPICAL PATCH TP SCH (10:13)
[2017-10-07] MEDS: NAPROXEN 500 MG TABLET (FP) PO SCH ×2 (10:13→21:22)
[2017-10-07] MEDS: PRENATAL VITAMINS W/ FOLIC ACID TABLET (FP) PO SCH (10:13)
[2017-10-07] MEDS ORDERED: LACTULOSE 20 GM/30 ML UDC (FOR ORAL USE ONLY) PO ONE (12:24)
--- NOTE | 2017-10-07 12:28 | PN ---
S Progress Note (SOAP) Subjective: still having constipation most likely from medications, colace and seenna as prescibed nto effective requesting lactulose daily Objective: 10/07/17 12:27 Vital Signs - 24 hr 10/07/17 03:30 Respiratory 20 Rate Laboratory Tests 09/28/17 05:45 HIV 1&2 Antibody Screen Negative HIV P24 Antigen Negative labs reviewed Assessment: 10/07/17 12:27 constipation - add lactulaose daily, 1 dose now, then nightsly
[2017-10-07] MEDS: SENNOSIDES 8.6MG TABLET (FP) PO SCH (21:22)
[2017-10-07] MEDS: traZODone HCL 100 MG TABLET (FP) PO SCH (21:22)
[2017-10-07] MEDS: LACTULOSE 20 GM/30 ML UDC (FOR ORAL USE ONLY) PO SCH (21:22)
[2017-10-07] MEDS: DOCUSATE SODIUM 100 MG CAPSULE (FP) PO SCH (21:22)
[2017-10-07] MEDS: LIDOCAINE PATCH REMOVAL MC SCH (21:23)
[2017-10-07] MEDS: QUEtiapine FUMARATE 400 MG TABLET PO SCH (21:23)
[2017-10-07] MEDS: THIAMINE HCL 100 MG TABLET (FP) PO SCH (21:23)
[2017-10-07] MEDS: HYDROCORTISONE 0.5% TOPICAL CREAM 30 GM TUBE TP PRN (21:26)
[2017-10-08] MEDS: SERTRALINE HCL 50 MG TABLET (FP) PO SCH (10:15)
[2017-10-08] MEDS: PANTOPRAZOLE 40 MG TABLET (FP) PO SCH (10:16)
[2017-10-08] MEDS: BACITRACIN 0.9 GM PACKET TP SCH ×2 (10:16→21:24)
[2017-10-08] MEDS: LIDOCAINE 5% TOPICAL PATCH TP SCH (10:16)
[2017-10-08] MEDS: QUEtiapine FUMARATE 200 MG TABLET PO SCH (10:16)
[2017-10-08] MEDS: DIVALPROEX SODIUM 500 MG TABLET E.C. PO SCH ×2 (10:16→21:25)
[2017-10-08] MEDS: PRENATAL VITAMINS W/ FOLIC ACID TABLET (FP) PO SCH (10:16)
[2017-10-08] MEDS: NAPROXEN 500 MG TABLET (FP) PO SCH ×2 (10:16→21:25)
[2017-10-08] MEDS: LACTULOSE 20 GM/30 ML UDC (FOR ORAL USE ONLY) PO SCH (21:24)
[2017-10-08] MEDS: SENNOSIDES 8.6MG TABLET (FP) PO SCH (21:25)
[2017-10-08] MEDS: traZODone HCL 100 MG TABLET (FP) PO SCH (21:25)
[2017-10-08] MEDS: DOCUSATE SODIUM 100 MG CAPSULE (FP) PO SCH (21:25)
[2017-10-08] MEDS: QUEtiapine FUMARATE 400 MG TABLET PO SCH (21:26)
[2017-10-08] MEDS: THIAMINE HCL 100 MG TABLET (FP) PO SCH (21:26)
[2017-10-08] MEDS: LIDOCAINE PATCH REMOVAL MC SCH (21:27)
[2017-10-09] MEDS: SERTRALINE HCL 50 MG TABLET (FP) PO SCH (10:08)
[2017-10-09] MEDS: QUEtiapine FUMARATE 200 MG TABLET PO SCH (10:08)
[2017-10-09] MEDS: NAPROXEN 500 MG TABLET (FP) PO SCH ×2 (10:08→21:18)
[2017-10-09] MEDS: DIVALPROEX SODIUM 500 MG TABLET E.C. PO SCH ×2 (10:08→21:18)
[2017-10-09] MEDS: LIDOCAINE 5% TOPICAL PATCH TP SCH (10:09)
[2017-10-09] MEDS: BACITRACIN 0.9 GM PACKET TP SCH ×2 (10:09→21:20)
[2017-10-09] MEDS: PANTOPRAZOLE 40 MG TABLET (FP) PO SCH (10:09)
[2017-10-09] MEDS: PRENATAL VITAMINS W/ FOLIC ACID TABLET (FP) PO SCH (10:10)
[2017-10-09] MEDS: SENNOSIDES 8.6MG TABLET (FP) PO SCH (21:18)
[2017-10-09] MEDS: LACTULOSE 20 GM/30 ML UDC (FOR ORAL USE ONLY) PO SCH (21:18)
[2017-10-09] MEDS: traZODone HCL 100 MG TABLET (FP) PO SCH (21:18)
[2017-10-09] MEDS: DOCUSATE SODIUM 100 MG CAPSULE (FP) PO SCH (21:18)
[2017-10-09] MEDS: THIAMINE HCL 100 MG TABLET (FP) PO SCH (21:20)
[2017-10-09] MEDS: LIDOCAINE PATCH REMOVAL MC SCH (21:20)
[2017-10-09] MEDS: QUEtiapine FUMARATE 400 MG TABLET PO SCH (21:20)
[2017-10-10 06:59] VITALS: TEMP 97.3
[2017-10-10] MEDS: PANTOPRAZOLE 40 MG TABLET (FP) PO SCH (10:19)
[2017-10-10] MEDS: PRENATAL VITAMINS W/ FOLIC ACID TABLET (FP) PO SCH (10:19)
[2017-10-10] MEDS: QUEtiapine FUMARATE 200 MG TABLET PO SCH (10:19)
[2017-10-10] MEDS: NAPROXEN 500 MG TABLET (FP) PO SCH ×2 (10:19→21:29)
[2017-10-10] MEDS: SERTRALINE HCL 50 MG TABLET (FP) PO SCH (10:19)
[2017-10-10] MEDS: BACITRACIN 0.9 GM PACKET TP SCH ×2 (10:19→21:30)
[2017-10-10] MEDS: LIDOCAINE 5% TOPICAL PATCH TP SCH (10:19)
[2017-10-10] MEDS: DIVALPROEX SODIUM 500 MG TABLET E.C. PO SCH ×2 (10:21→21:29)
[2017-10-10] MEDS: HYDROCORTISONE 0.5% TOPICAL CREAM 30 GM TUBE TP PRN (10:21)
[2017-10-10] MEDS: THIAMINE HCL 100 MG TABLET (FP) PO SCH (21:28)
[2017-10-10] MEDS: traZODone HCL 100 MG TABLET (FP) PO SCH (21:29)
[2017-10-10] MEDS: DOCUSATE SODIUM 100 MG CAPSULE (FP) PO SCH (21:29)
[2017-10-10] MEDS: LACTULOSE 20 GM/30 ML UDC (FOR ORAL USE ONLY) PO SCH (21:30)
[2017-10-10] MEDS: SENNOSIDES 8.6MG TABLET (FP) PO SCH (21:30)
[2017-10-10] MEDS: QUEtiapine FUMARATE 400 MG TABLET PO SCH (21:31)
[2017-10-10] MEDS: LIDOCAINE PATCH REMOVAL MC SCH (21:31)
[2017-10-11 06:53] VITALS: BP 141/84; PULSE 81
--- NOTE | 2017-10-11 08:07 | PN ---
Psychiatric Progress Note Vital Signs: Vital Signs Period Temp Pulse Resp BP Sys/Traylor Pulse Ox Last 24 Hr 97.3 F 81 18-18 141/84 Date of Session: 10/11/17 Chief Complaint:: discharge visit HPI: Patient has addressed alcohol, nicotine dependence comorbid schizoaffective disorder. ROS: arthritis medically managed. Current Medications: Active Medications Generic Name Dose Route Start Last Admin Trade Name Freq PRN Reason Stop Dose Admin Acetaminophen 650 mg 09/27/17 16:18 09/30/17 07:01 Tylenol - PO 650 mg Q4H PRN Administration FEVER Al Hydroxide/Mg Hydroxide 30 ml 09/27/17 16:18 09/29/17 00:27 Mylanta Oral Suspension - PO 30 ml Q6H PRN Administration DYSPEPSIA Bacitracin 0.9 gm 10/06/17 11:30 10/10/17 21:30 Bacitracin - TP 0.9 gm BID JUSTYNA Administration Divalproex Sodium 500 mg 09/27/17 22:00 10/10/17 21:29 Depakote - PO 500 mg BID JUSTYNA Administration Docusate Sodium 300 mg 09/28/17 22:00 10/10/17 21:29 Colace - PO 300 mg HS JUSTYNA Administration Eucalyptus/Menthol/Phenol/Sorbitol 1 each 09/27/17 16:18 Cepastat Lozenge - MM Q4H PRN SORE THROAT Guaifenesin 10 ml 09/27/17 16:18 Robitussin Dm - PO Q6H PRN COUGH Hydrocortisone 1 applic 09/28/17 14:00 10/10/17 10:21 Hytone 0.5% Cream - TP 1 applic DAILY PRN Administration FOR ITCHING Lactulose 20 gm 10/07/17 22:00 10/10/17 21:30 Cephulac (Oral Use) PO 20 gm HS JUSTYNA Administration Lidocaine 1 patch 09/28/17 14:00 10/10/17 10:19 Lidoderm Patch - TP Not Given DAILY JUSTYNA Loperamide HCl 4 mg 09/27/17 16:18 Imodium - PO Q6H PRN DIARRHEA Magnesium Citrate 300 ml 09/27/17 16:18 Citroma - PO Q48H PRN CONSTIPATION Magnesium Hydroxide 30 ml 09/27/17 16:18 10/06/17 21:41 Milk Of Magnesia - PO 30 ml DAILY PRN Administration CONSTIPATION Miscellaneous 1 each 09/28/17 22:00 10/10/17 21:31 Lidoderm Patch Removal MC 1 each DAILY@2200 JUSTYNA Administration Naproxen 500 mg 09/28/17 14:00 10/10/17 21:29 Naprosyn - PO 500 mg BID JUSTYNA Administration Nicotine 14 mg 09/27/17 17:00 Nicoderm Patch - TD DAILY PRN WITHDRAWAL(CONT SUBST) Nicotine Polacrilex 2 mg 09/27/17 16:18 Nicorette Gum - BUC Q2H PRN NICOTINE REPLACEMENT RX Pantoprazole Sodium 40 mg 09/28/17 10:00 10/10/17 10:19 Protonix - PO 40 mg DAILY JUSTYNA Administration Multivit/Folic Acid/Iron 1 tab 09/28/17 10:00 10/10/17 10:19 Vitamins (Sjr) - PO 1 tab DAILY JUSTYNA Administration Pseudoephedrine/Triprolidine 1 combo 09/27/17 16:18 Actifed - PO TID PRN NASAL CONGESTION Quetiapine Fumarate 400 mg 09/27/17 22:00 10/10/17 21:31 Seroquel - PO 400 mg HS JUSTYNA Administration Quetiapine Fumarate 200 mg 09/28/17 10:00 10/10/17 10:19 Seroquel - PO 200 mg DAILY JUSTYNA Administration Senna 2 tab 09/28/17 22:00 10/10/17 21:30 Senna - PO 2 tab HS JUSTYNA Administration Sertraline HCl 200 mg 09/29/17 10:00 10/10/17 10:19 Zoloft - PO 200 mg DAILY JUSTYNA Administration Thiamine HCl 100 mg 09/27/17 22:00 10/10/17 21:28 Vitamin B1 - PO 100 mg HS JUSTYNA Administration Trazodone HCl 200 mg 09/27/17 22:00 10/10/17 21:29 Desyrel - PO 200 mg HS JUSTYNA Administration Current Side Effect: No Lab tests ordered: No Lab tests reviewed: Yes Provider note:: Patient has completed today his treatment and met his goals, will continue to address his issues at [facility], he gained insights into his addiction and motivated to continue maintain abstinence. He understands the negative consequences of his addiction and importance of changing attitudes for the utilization of supports to prevent relapses. Medication well tolerated( depakote, seroquel, zoloft, trazodone) scripts provided, patient is stable for discharge today. Total face to face time:: 20 Mental Status Exam - Mental Status Exam Alert and Oriented to: Time, Place, Person Cognitive Function: Grossly Intact Patient Appearance: Well Groomed Mood: Hopeful Affect: Appropriate, Mood Congruent Patient Behavior: Appropriate, Cooperative Speech Pattern: Clear, Appropriate Voice Loudness: Normal Thought Process: Intact, Goal Oriented Thought Disorder: Not Present Hallucinations: Denies Suicidal Ideation: Denies Homicidal Ideation: Denies Insight/Judgement: Fair Sleep: Fair Appetite: Good Muscle strength/Tone: Normal Gait/Station: Normal Psychiatric Treatment Plan - Problem List (1) Nicotine dependence Current Visit: No Qualifiers: Nicotine product type: cigarettes Substance use status: uncomplicated Qualified Code(s): F17.210 - Nicotine dependence, cigarettes, uncomplicated (2) ARTHRITS Current Visit: No (3) Alcohol dependence Current Visit: No (4) GERD (gastroesophageal reflux disease) Current Visit: No Qualifiers: Esophagitis presence: esophagitis presence not specified Qualified Code(s) : K21.9 - Gastro-esophageal reflux disease without esophagitis (5) Schizoaffective disorder Current Visit: No (6) Use of cane as ambulatory aid Current Visit: No
[2017-10-11] MEDS: LIDOCAINE 5% TOPICAL PATCH TP SCH (08:20)
[2017-10-11] MEDS: NAPROXEN 500 MG TABLET (FP) PO SCH (08:20)
[2017-10-11] MEDS: BACITRACIN 0.9 GM PACKET TP SCH (08:20)
[2017-10-11] MEDS: PANTOPRAZOLE 40 MG TABLET (FP) PO SCH (08:20)
[2017-10-11] MEDS: SERTRALINE HCL 50 MG TABLET (FP) PO SCH (08:20)
[2017-10-11] MEDS: DIVALPROEX SODIUM 500 MG TABLET E.C. PO SCH (08:20)
[2017-10-11] MEDS: PRENATAL VITAMINS W/ FOLIC ACID TABLET (FP) PO SCH (08:20)
[2017-10-11] MEDS: QUEtiapine FUMARATE 200 MG TABLET PO SCH (08:20)
== END 2017-10-11 08:25 | disposition home or self-care (01) | DRG 772 ==
LOC: YASAS 12:16 → Y5N 12:35
PROVIDERS: ADMIT Psychiatry & Neurology Psychiatry; ATTEND Psychiatry & Neurology Psychiatry
PROC: HZ42ZZZ Group Counseling for Substance Abuse Treatment, Cognitive-Behavioral (ICD-10-PCS; principal; 2017-09-27)
DX: F10.20 Alcohol dependence, uncomplicated (principal); F17.210 Nicotine dependence, cigarettes, uncomplicated; F25.9 Schizoaffective disorder, unspecified; M12.9 Arthropathy, unspecified; R26.89 Other abnormalities of gait and mobility; Z99.89 Dependence on other enabling machines and devices; Z59.0 Homelessness
CPT/HCPCS: 36415; 87389

== ENCOUNTER 2019-09-18 15:21 | Inpatient (IN) | payer OTHER ==
[2019-09-18 18:12] VITALS: BMI 23.5
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
[2019-09-18] MEDS ORDERED: DICYCLOMINE HCL 10 MG CAPSULE PO PRN (20:27)
[2019-09-18] MEDS ORDERED: MENTHOL/PHENOL 1 EACH UD MM PRN (20:27)
[2019-09-18] MEDS ORDERED: ONDANSETRON *ODT* 4 MG TABLET SL PRN (20:27)
[2019-09-18] MEDS ORDERED: MAG HYDROX/AL HYDROX/SIMETH 30 ML UNIT-DOSE CUP PO PRN (20:27)
[2019-09-18] MEDS ORDERED: MELATONIN 5 MG TABLETS PO PRN (20:27)
[2019-09-18] MEDS ORDERED: METHOCARBAMOL 500 MG TABLET PO PRN (20:27)
[2019-09-18] MEDS ORDERED: ACETAMINOPHEN 325 MG TABLET (FP) PO PRN (20:27)
[2019-09-18] MEDS ORDERED: hydrOXYzine PAMOATE 25 MG CAPSULE (FP) PO PRN (20:27)
[2019-09-18] MEDS ORDERED: P-EPHED 60MG/TRIPROLIDI 2.5MG TABLET PO PRN (20:27)
[2019-09-18] MEDS ORDERED: chlordiazePOXIDE HCL 10 MG CAPSULE PO PRN (20:27)
[2019-09-18] MEDS ORDERED: guaiFENesin 200 MG/10 ML 10 ML UNIT-DOSE CUPS PO PRN (20:27)
[2019-09-18] MEDS ORDERED: MAGNESIUM HYDROX 2400MG/30ML ORAL SUSPENSION 30 ML CUP PO PRN (20:27)
[2019-09-18] MEDS ORDERED: BISMUTH SUBSALICYLATE 524 MG/30 ML UD PO PRN (20:27)
[2019-09-18] MEDS ORDERED: NICOTINE POLACRILEX 2 MG GUM BUC PRN (20:27)
[2019-09-18] MEDS ORDERED: IBUPROFEN 400 MG TABLET (FP) PO PRN (20:27)
[2019-09-18] MEDS ORDERED: MAGNESIUM CITRATE 300 ML BOTTLE PO PRN (20:27)
[2019-09-18] MEDS: FAMOTIDINE 20 MG TABLET PO SCH (21:15)
[2019-09-18] MEDS: chlordiazePOXIDE HCL 25 MG CAPSULE PO SCH (21:15)
[2019-09-18] MEDS: THIAMINE HCL 100 MG TABLET (FP) PO SCH (21:15)
[2019-09-19] MEDS: chlordiazePOXIDE HCL 25 MG CAPSULE PO SCH ×3 (05:50→22:33)
[2019-09-19] MEDS: PRENATAL VITAMINS W/ FOLIC ACID TABLET (FP) PO SCH (09:34)
[2019-09-19] MEDS: FAMOTIDINE 20 MG TABLET PO SCH ×2 (09:34→22:34)
--- NOTE | 2019-09-19 09:39 | PN ---
S CIWA - CIWA Score Nausea/Vomitin-Mild Nausea/No Vomiting Muscle Tremors: 4-Moderate,w/Arms Extend Anxiety: 3 Agitation: 1-Slight > Activity Paroxysmal Sweats: 2 Orientation: 0-Oriented Tacttile Disturbances: 1-Very Mild Itch/Numbness Auditory Disturbances: 0-None Visual Disturbances: 0-None Headache: 0-None Present CIWA-Ar Total Score: 12 [facility] Progress Note (SOAP) Subjective: 54 years old male admitted on 09/18/19 for alcohol withdrawal sx management treating with librium detox regimen ate breakfast resting in bed tremor of both hands ambulating with crutches due to left knee deformity limited mobility Objective: 09/19/19 09:38 Vital Signs Temperature 98.6 F 09/19/19 09:09 Pulse Rate 85 09/19/19 09:09 Respiratory Rate 18 09/19/19 09:09 Blood Pressure 114/61 09/19/19 09:09 O2 Sat by Pulse Oximetry (%) 09/19/19 09:38 lab noted Assessment: 09/19/19 09:38 alcohol withdrawal Plan: librium regimen
[2019-09-19 09:42] LABS: HEMATOCRIT 38.8 % (35.4-49); HEMOGLOBIN 13.1 GM/dL (11.7-16.9); MCH 33.2 pg (25.7-33.7); MCHC 33.8 g/dl (32.0-35.9); MEAN CELL VOLUME 98.3 fl (80-96); MEAN PLT VOLUME 8.7 fl (7.5-11.1); PLATELET COUNT 174 K/MM3 (134-434); RBC 3.95 M/mm3 (4.00-5.60); RDW 14.4 % (11.9-15.9)
[2019-09-19 10:11] LABS: ALBUMIN 3.6 g/dl (3.4-5.0); BILIRUBIN,TOTAL 1.7 mg/dL (0.2-1); BLOOD UREA NITROGEN 8.8 mg/dL (7-18); CALCIUM 8.6 mg/dL (8.5-10.1); CREATININE 0.7 mg/dL (0.55-1.3); POTASSIUM 3.8 mmol/L (3.5-5.1); TOT PROT 6.8 g/dl (6.4-8.2)
--- NOTE | 2019-09-19 11:14 | EKG ---
Test Reason : Blood Pressure : / mmHG Vent. Rate : 090 BPM Atrial Rate : 090 BPM P-R Int : 144 ms QRS Dur : 068 ms QT Int : 368 ms P-R-T Axes : 000 052 054 degrees QTc Int : 450 ms NORMAL SINUS RHYTHM NORMAL ECG WHEN COMPARED WITH ECG OF 23-SEP-2017 17:51, NONSPECIFIC T WAVE ABNORMALITY NOW EVIDENT IN INFERIOR LEADS Confirmed by MINGO HAYES, VERITO ([id number]) on 09/19/2019 11:13:35 AM Referred By: Confirmed By:VERITO AGUILA MD
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
[2019-09-19] MEDS ORDERED: traZODone HCL 150 MG TABLET PO SCH (22:00)
[2019-09-19] MEDS: QUEtiapine FUMARATE 200 MG TABLET PO SCH (22:34)
[2019-09-19] MEDS: DIVALPROEX SODIUM 500 MG TABLET E.C. PO SCH (22:34)
[2019-09-19] MEDS: traZODone HCL 100 MG TABLET (FP) PO SCH (22:34)
[2019-09-19] MEDS: THIAMINE HCL 100 MG TABLET (FP) PO SCH (22:34)
[2019-09-20] MEDS: chlordiazePOXIDE 5 MG CAPSULE PO SCH ×3 (05:18→22:42)
--- NOTE | 2019-09-20 10:15 | PN ---
S CIWA - CIWA Score Nausea/Vomitin-No Nausea/No Vomiting Muscle Tremors: None Anxiety: 3 Agitation: 2 Paroxysmal Sweats: 1-Minimal Palms Moist Orientation: 0-Oriented Tacttile Disturbances: 0-None Auditory Disturbances: 0-None Visual Disturbances: 1-Very Mild Sensitivity Headache: 2-Mild CIWA-Ar Total Score: 9 BHS Progress Note (SOAP) Subjective: 54 years old male admitted on 09/18/19 for alcohol withdrawal sx management treating wtih librium detox regimen feeling ok today social with peers in day room discuss aftercare with staff Objective: 09/20/19 10:15 Vital Signs Temperature 97.7 F 09/20/19 09:25 Pulse Rate 104 H 09/20/19 09:25 Respiratory Rate 18 09/20/19 09:25 Blood Pressure 132/85 09/20/19 09:25 O2 Sat by Pulse Oximetry (%) Assessment: 09/20/19 10:23 alcohol withdrawal Plan: librium regimen
[2019-09-20] MEDS: FAMOTIDINE 20 MG TABLET PO SCH ×2 (11:47→22:43)
[2019-09-20] MEDS: DIVALPROEX SODIUM 500 MG TABLET E.C. PO SCH ×2 (11:47→22:43)
[2019-09-20] MEDS: PRENATAL VITAMINS W/ FOLIC ACID TABLET (FP) PO SCH (11:48)
[2019-09-20] MEDS: SERTRALINE HCL 50 MG TABLET (FP) PO SCH (11:48)
[2019-09-20] MEDS ORDERED: TRIMETHOBENZAMIDE HCL 200MG/2ML INJ IM ONE (21:22)
--- NOTE | 2019-09-20 21:23 | PN ---
S Progress Note Note: Patient vomited x 2 Vital Signs Temperature 98.3 F 09/20/19 17:50 Pulse Rate 108 H 09/20/19 17:50 Respiratory Rate 18 09/20/19 17:50 Blood Pressure 129/89 09/20/19 17:50 O2 Sat by Pulse Oximetry (%) Action: Tigan 200mg intramuscular ordered
[2019-09-20] MEDS: QUEtiapine FUMARATE 200 MG TABLET PO SCH (22:43)
[2019-09-20] MEDS: traZODone HCL 100 MG TABLET (FP) PO SCH (22:43)
[2019-09-20] MEDS: THIAMINE HCL 100 MG TABLET (FP) PO SCH (22:43)
[2019-09-21] MEDS ORDERED: chlordiazePOXIDE HCL 10 MG CAPSULE PO PRN
[2019-09-21] MEDS: chlordiazePOXIDE HCL 10 MG CAPSULE PO SCH ×3 (06:03→22:28)
[2019-09-21] MEDS: SERTRALINE HCL 50 MG TABLET (FP) PO SCH (10:31)
[2019-09-21] MEDS: DIVALPROEX SODIUM 500 MG TABLET E.C. PO SCH ×2 (10:31→22:28)
[2019-09-21] MEDS: PRENATAL VITAMINS W/ FOLIC ACID TABLET (FP) PO SCH (10:31)
[2019-09-21] MEDS: FAMOTIDINE 20 MG TABLET PO SCH ×2 (10:31→22:28)
--- NOTE | 2019-09-21 10:54 | PN ---
BHS CIWA - CIWA Score Nausea/Vomitin Muscle Tremors: None Anxiety: 1-Mildly Anxious Agitation: 1-Slight > Activity Paroxysmal Sweats: No Perspiration Orientation: 0-Oriented Tacttile Disturbances: 0-None Auditory Disturbances: 0-None Visual Disturbances: 0-None Headache: 1-Very Mild CIWA-Ar Total Score: 6 BHS Progress Note (SOAP) Subjective: pt states still feeling nauseous- rec'd tigan last night. anticipate discharge to rehab tomorrow- here preferable 54 years old male admitted on 09/18/19 for alcohol withdrawal sx management treating wtih librium detox regimen O: Vital Signs - 24 hr 09/20/19 09/20/19 09/20/19 13:09 17:50 22:37 Temperature 98.1 F 98.3 F 98.3 F Pulse Rate 92 H 108 H 71 Respiratory 18 18 110 H Rate Blood Pressure 147/91 129/89 129/89 09/21/19 09/21/19 09/21/19 00:27 03:30 05:51 Temperature 98.2 F Pulse Rate 81 Respiratory 18 18 16 Rate Blood Pressure 99/58 L 09/21/19 09:13 Temperature 97.0 F L Pulse Rate 101 H Respiratory 18 Rate Blood Pressure 130/90 Laboratory Tests 09/19/19 09/19/19 09/19/19 08:00 08:00 08:00 WBC 4.0 RBC 3.95 L Hgb 13.1 Hct 38.8 MCV 98.3 H MCH 33.2 MCHC 33.8 RDW 14.4 Plt Count 174 MPV 8.7 D Sodium 138 Potassium 3.8 Chloride 102 Carbon Dioxide 28 Anion Gap 8 BUN 8.8 Creatinine 0.7 Est GFR (CKD-EPI)AfAm 125.75 Est GFR (CKD-EPI)NonAf 108.50 Random Glucose 80 Calcium 8.6 Total Bilirubin 1.7 H AST 44 H ALT 47 Alkaline Phosphatase 53 Total Protein 6.8 Albumin 3.6 Valproic Acid RPR Titer Nonreactive 09/19/19 13:00 WBC RBC Hgb Hct MCV MCH MCHC RDW Plt Count MPV Sodium Potassium Chloride Carbon Dioxide Anion Gap BUN Creatinine Est GFR (CKD-EPI)AfAm Est GFR (CKD-EPI)NonAf Random Glucose Calcium Total Bilirubin AST ALT Alkaline Phosphatase Total Protein Albumin Valproic Acid 27.3 L RPR Titer mildly increased liver enzymes a/p: continue alcohol detox protocol anticipate d/c tomorrow to rehab
[2019-09-21] MEDS: ACETAMINOPHEN 325 MG TABLET (FP) PO PRN (14:12)
[2019-09-21] MEDS ORDERED: RANITIDINE HCL 150 MG/10 ML UNIT-DOSE PO SCH (22:00)
[2019-09-21] MEDS: traZODone HCL 100 MG TABLET (FP) PO SCH (22:28)
[2019-09-21] MEDS: THIAMINE HCL 100 MG TABLET (FP) PO SCH (22:28)
[2019-09-21] MEDS: QUEtiapine FUMARATE 200 MG TABLET PO SCH (22:28)
[2019-09-22] MEDS ORDERED: chlordiazePOXIDE HCL 10 MG CAPSULE PO ONE (05:00)
[2019-09-22 09:31] VITALS: BP 102/60; PULSE 87; TEMP 98.7
[2019-09-22] MEDS: SERTRALINE HCL 50 MG TABLET (FP) PO SCH (10:42)
[2019-09-22] MEDS: PRENATAL VITAMINS W/ FOLIC ACID TABLET (FP) PO SCH (10:42)
[2019-09-22] MEDS: FAMOTIDINE 20 MG TABLET PO SCH (10:43)
[2019-09-22] MEDS: DIVALPROEX SODIUM 500 MG TABLET E.C. PO SCH (10:43)
[2019-09-22] MEDS: ACETAMINOPHEN 325 MG TABLET (FP) PO PRN (10:45)
--- NOTE | 2019-09-22 12:39 | DS ---
[facility] Detox Discharge Summary Admission Date: 09/18/19 Discharge Date: 09/22/19 - History Present History: Alcohol Dependence, Cannabis Dependence Additional Comments: Pt is medically cleared and discharge to [facility] for continued management. Pt completed the detox protocol. Pt is encouraged to follow through with the rehab protocol. Pt verbalized understanding. Pt is alert and oriented x3 and in no respiratory distress. Pertinent Past History: h/o GERD, alcohol, and cannabis use disorder. - Physical Exam Results Vital Signs: Vital Signs Temperature 98.7 F 09/22/19 09:28 Pulse Rate 87 09/22/19 09:28 Respiratory Rate 18 09/22/19 09:28 Blood Pressure 102/60 09/22/19 09:28 O2 Sat by Pulse Oximetry (%) Vital Signs 09/22/19 09/22/19 06:39 09:28 Temperature 97.1 F L 98.7 F Pulse Rate 85 87 Respiratory 18 18 Rate Blood Pressure 124/74 102/60 Laboratory Last Values WBC 4.0 K/mm3 (4.0-10.0) 09/19/19 08:00 RBC 3.95 M/mm3 (4.00-5.60) L 09/19/19 08:00 Hgb 13.1 GM/dL (11.7-16.9) 09/19/19 08:00 Hct 38.8 % (35.4-49) 09/19/19 08:00 MCV 98.3 fl (80-96) H 09/19/19 08:00 MCH 33.2 pg (25.7-33.7) 09/19/19 08:00 MCHC 33.8 g/dl (32.0-35.9) 09/19/19 08:00 RDW 14.4 % (11.9-15.9) 09/19/19 08:00 Plt Count 174 K/MM3 (134-434) 09/19/19 08:00 MPV 8.7 fl (7.5-11.1) D 09/19/19 08:00 Sodium 138 mmol/L (136-145) 09/19/19 08:00 Potassium 3.8 mmol/L (3.5-5.1) 09/19/19 08:00 Chloride 102 mmol/L (98-107) 09/19/19 08:00 Carbon Dioxide 28 mmol/L (21-32) 09/19/19 08:00 Anion Gap 8 MMOL/L (8-16) 09/19/19 08:00 BUN 8.8 mg/dL (7-18) 09/19/19 08:00 Creatinine 0.7 mg/dL (0.55-1.3) 09/19/19 08:00 Est GFR (CKD-EPI)AfAm 125.75 09/19/19 08:00 Est GFR (CKD-EPI)NonAf 108.50 09/19/19 08:00 Random Glucose 80 mg/dL (74-106) 09/19/19 08:00 Calcium 8.6 mg/dL (8.5-10.1) 09/19/19 08:00 Total Bilirubin 1.7 mg/dL (0.2-1) H 09/19/19 08:00 AST 44 U/L (15-37) H 09/19/19 08:00 ALT 47 U/L (13-61) 09/19/19 08:00 Alkaline Phosphatase 53 U/L (45-117) 09/19/19 08:00 Total Protein 6.8 g/dl (6.4-8.2) 09/19/19 08:00 Albumin 3.6 g/dl (3.4-5.0) 09/19/19 08:00 Valproic Acid 27.3 ug/mL (50-100) L 09/19/19 13:00 RPR Titer Nonreactive (NONREACTIVE) 09/19/19 08:00 Labs noted. Pertinent Admission Physical Exam Findings: withdrawal symptoms. - Treatment Hospital Course: Detox Protocol Followed, Detoxed Safely, Responded well, Discharged Condition Good, Rehab Referral Accepted Patient has Accepted a Rehab Referral to: [facility] - Medication Discharge Medications: Ambulatory Orders Docusate Sodium [Colace -] 100 mg PO TID #90 capsule 12/07/13 Divalproex [Depakote -] 500 mg PO BID #60 tablet.ec 10/10/17 Sertraline HCl [Zoloft -] 200 mg PO DAILY #30 tablet 10/10/17 Quetiapine Fumarate [Seroquel -] 100 mg PO DAILY 09/18/19 Quetiapine Fumarate [Seroquel -] 200 mg PO HS 09/18/19 Ranitidine HCl [Zantac 75] 50 mg PO DAILY 09/18/19 traZODone HCL [Desyrel -] 200 mg PO HS 09/18/19 - Diagnosis (1) Alcohol dependence with uncomplicated withdrawal Status: Acute (2) Risk for falls Status: Chronic (3) Cannabis dependence Status: Chronic (4) Crutches as ambulation aid Status: Chronic (5) GERD (gastroesophageal reflux disease) Status: Chronic Qualifiers: Esophagitis presence: esophagitis presence not specified Qualified Code(s) : K21.9 - Gastro-esophageal reflux disease without esophagitis (6) Gastritis Status: Chronic (7) History of total bilateral knee replacement Status: Chronic (8) ARTHRITS Status: Chronic (9) Alcohol dependence Status: Chronic - AMA Did Patient Leave Against Medical Advice: No
== END 2019-09-22 12:59 | disposition other institution (70) | DRG 775 ==
LOC: YASAS 15:21 → Y3N 20:47
PROVIDERS: ADMIT Allergy & Immunology; ATTEND Allergy & Immunology
PROC: HZ2ZZZZ Detoxification Services for Substance Abuse Treatment (ICD-10-PCS; principal; 2019-09-18)
DX: F10.230 Alcohol dependence with withdrawal, uncomplicated (principal); F12.20 Cannabis dependence, uncomplicated; F17.210 Nicotine dependence, cigarettes, uncomplicated; F25.9 Schizoaffective disorder, unspecified; F31.9 Bipolar disorder, unspecified; F41.9 Anxiety disorder, unspecified; K21.9 Gastro-esophageal reflux disease without esophagitis; K29.50 Unspecified chronic gastritis without bleeding; M12.9 Arthropathy, unspecified; R45.89 Other symptoms and signs involving emotional state; R26.89 Other abnormalities of gait and mobility; Z91.81 History of falling; Z96.653 Presence of artificial knee joint, bilateral; Z86.19 Personal history of other infectious and parasitic diseases; Z99.89 Dependence on other enabling machines and devices; Z88.0 Allergy status to penicillin
CPT/HCPCS: 36415; 80053; 80164; 85027; 86593; 93005; 93010; Q0162

== ENCOUNTER 2019-09-22 12:54 | Inpatient (IN) | payer OTHER ==
[2019-09-22] MEDS ORDERED: IBUPROFEN 400 MG TABLET (FP) PO PRN (14:09)
[2019-09-22] MEDS ORDERED: guaiFENesin 200 MG/10 ML 10 ML UNIT-DOSE CUPS PO PRN (14:09)
[2019-09-22] MEDS ORDERED: MAG HYDROX/AL HYDROX/SIMETH 30 ML UNIT-DOSE CUP PO PRN (14:09)
[2019-09-22] MEDS ORDERED: LOPERAMIDE HCL 2 MG CAPSULE PO PRN (14:09)
[2019-09-22] MEDS ORDERED: P-EPHED 60MG/TRIPROLIDI 2.5MG TABLET PO PRN (14:09)
[2019-09-22] MEDS ORDERED: MENTHOL/PHENOL 1 EACH UD MM PRN (14:09)
[2019-09-22] MEDS ORDERED: ACETAMINOPHEN 325 MG TABLET (FP) PO PRN (14:09)
--- NOTE | 2019-09-22 14:09 | HP ---
[facility] Rehab Assess/Revision - Admission History Admitted to Rehab from: [facility] Date of Admission to Rehab: 09/22/2019 - Vital signs Vital Signs: Stable. - Findings Detox History & Physical reviewed: Yes Concur with findings: Yes Inpatient Rehab Admission - Rehab Decision to Admit Inpatient rehab admission?: Yes - Initial Determination Are CD services needed?: Yes Free of communicable disease: Yes Not in need of hospitalization: Yes - Rehab Admission Criteria Previous failed treatment: Yes Poor recovery environment: Yes Comorbidities: Yes Lacks judgement: Yes Patient is meeting Inpatient Rehab admission criteria:: Yes
[2019-09-22] MEDS ORDERED: NICOTINE POLACRILEX 2 MG GUM BUC PRN (14:13)
[2019-09-22] MEDS: FAMOTIDINE 20 MG TABLET PO SCH (21:52)
[2019-09-22] MEDS: THIAMINE HCL 100 MG TABLET (FP) PO SCH (21:52)
[2019-09-22] MEDS: MELATONIN 5 MG TABLETS PO PRN (21:54)
[2019-09-23] MEDS: FAMOTIDINE 20 MG TABLET PO SCH ×2 (10:14→21:39)
[2019-09-23] MEDS: PRENATAL VITAMINS W/ FOLIC ACID TABLET (FP) PO SCH (10:14)
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
[2019-09-23] MEDS: SERTRALINE HCL 50 MG TABLET (FP) PO SCH (11:40)
[2019-09-23] MEDS: DIVALPROEX SODIUM 500 MG TABLET E.C. PO SCH ×2 (11:40→22:17)
[2019-09-23] MEDS: PANTOPRAZOLE 40 MG TABLET PO SCH (12:55)
[2019-09-23] MEDS: traZODone HCL 50 MG TABLET (FP) PO SCH (21:39)
[2019-09-23] MEDS: THIAMINE HCL 100 MG TABLET (FP) PO SCH (21:39)
[2019-09-23] MEDS ORDERED: QUEtiapine FUMARATE 400 MG TABLET PO SCH (22:00)
[2019-09-23] MEDS: MELATONIN 5 MG TABLETS PO PRN (22:17)
[2019-09-24] MEDS: FAMOTIDINE 20 MG TABLET PO SCH ×2 (11:15→21:33)
[2019-09-24] MEDS: PRENATAL VITAMINS W/ FOLIC ACID TABLET (FP) PO SCH (11:15)
[2019-09-24] MEDS: SERTRALINE HCL 50 MG TABLET (FP) PO SCH (11:15)
[2019-09-24] MEDS: PANTOPRAZOLE 40 MG TABLET PO SCH (11:15)
[2019-09-24] MEDS: DIVALPROEX SODIUM 500 MG TABLET E.C. PO SCH ×2 (11:16→21:33)
[2019-09-24] MEDS: traZODone HCL 50 MG TABLET (FP) PO SCH (21:33)
[2019-09-24] MEDS: QUEtiapine FUMARATE 200 MG TABLET PO SCH (21:33)
[2019-09-24] MEDS: THIAMINE HCL 100 MG TABLET (FP) PO SCH (21:33)
[2019-09-24] MEDS: MELATONIN 5 MG TABLETS PO PRN (21:34)
[2019-09-25] MEDS: PRENATAL VITAMINS W/ FOLIC ACID TABLET (FP) PO SCH (10:36)
[2019-09-25] MEDS: PANTOPRAZOLE 40 MG TABLET PO SCH (10:36)
[2019-09-25] MEDS: DIVALPROEX SODIUM 500 MG TABLET E.C. PO SCH ×2 (10:37→21:38)
[2019-09-25] MEDS: FAMOTIDINE 20 MG TABLET PO SCH (10:37)
[2019-09-25] MEDS: SERTRALINE HCL 50 MG TABLET (FP) PO SCH (10:37)
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
[2019-09-25] MEDS ORDERED: SODIUM PHOSPHATE/NA BIPHOS 133 ML ENEMA PR ONE ×2 (11:18→22:00)
[2019-09-25] MEDS ORDERED: DOCUSATE SODIUM 100 MG CAPSULE (FP) PO SCH (14:00)
[2019-09-25] MEDS: DOCUSATE SODIUM 100 MG CAPSULE (FP) PO SCH ×2 (14:19→21:37)
[2019-09-25] MEDS: traZODone HCL 50 MG TABLET (FP) PO SCH (21:38)
[2019-09-25] MEDS: QUEtiapine FUMARATE 200 MG TABLET PO SCH (21:38)
[2019-09-25] MEDS: MELATONIN 5 MG TABLETS PO PRN (21:38)
[2019-09-25] MEDS: THIAMINE HCL 100 MG TABLET (FP) PO SCH (21:39)
[2019-09-25] MEDS: hydrOXYzine PAMOATE 25 MG CAPSULE (FP) PO PRN (21:40)
[2019-09-26] MEDS: DOCUSATE SODIUM 100 MG CAPSULE (FP) PO SCH ×3 (06:43→21:37)
[2019-09-26] MEDS: PANTOPRAZOLE 40 MG TABLET PO SCH (06:43)
[2019-09-26] MEDS: SERTRALINE HCL 50 MG TABLET (FP) PO SCH (11:47)
[2019-09-26] MEDS: PRENATAL VITAMINS W/ FOLIC ACID TABLET (FP) PO SCH (11:47)
[2019-09-26] MEDS: DIVALPROEX SODIUM 500 MG TABLET E.C. PO SCH ×2 (11:47→21:37)
--- NOTE | 2019-09-26 16:34 | PN ---
Psychiatric Progress Note Vital Signs: Vital Signs Period Temp Pulse Resp BP Sys/Traylor Pulse Ox Last 24 Hr 97.1 F 91 18-18 113/69 Date of Session: 09/26/19 Chief Complaint:: " I cannot sleep at night. I am anxious. I need more seroquel. " HPI: Called to adjust seroquel dose for this patient who continues to present with complaints of mood dysregulation and refractory insomnia. Mr Emery is well known to [facility]. Hospital course remains fair except for dysphoria/ insomnia. ROS: Patient ambulates with crutches. Alert and cognitively intact. Current Medications: Active Medications Generic Name Dose Route Start Last Admin Trade Name Freq PRN Reason Stop Dose Admin Acetaminophen 650 mg 09/22/19 14:09 09/23/19 06:44 Tylenol - PO 650 mg Q6H PRN Administration FEVER Al Hydroxide/Mg Hydroxide 30 ml 09/22/19 14:09 Mylanta Oral Suspension - PO Q6H PRN DYSPEPSIA Divalproex Sodium 500 mg 09/23/19 11:15 09/26/19 11:47 Depakote - PO 500 mg BID JUSTYNA Administration Docusate Sodium 100 mg 09/25/19 14:00 09/26/19 14:57 Colace - PO 100 mg TID JUSTYNA Administration Eucalyptus/Menthol/Phenol/Sorbitol 1 each 09/22/19 14:09 Cepastat Lozenge - MM Q4H PRN SORE THROAT Guaifenesin 10 ml 09/22/19 14:09 Robitussin - PO Q6H PRN COUGH Hydroxyzine Pamoate 25 mg 09/22/19 14:09 09/25/19 21:40 Vistaril - PO 25 mg Q6H PRN Administration AGITATION Ibuprofen 400 mg 09/22/19 14:09 09/25/19 06:56 Motrin - PO 400 mg Q6H PRN Administration Pain Level 4-6 Loperamide HCl 4 mg 09/22/19 14:09 Imodium - PO Q6H PRN DIARRHEA Magnesium Hydroxide 30 ml 09/22/19 14:09 Milk Of Magnesia - PO DAILY PRN CONSTIPATION Melatonin 5 mg 09/22/19 22:00 09/25/19 21:38 Melatonin PO 5 mg HS PRN Administration INSOMNIA Nicotine Polacrilex 2 mg 01/11/20 14:13 Nicorette Gum - BUC Q2H PRN NICOTINE REPLACEMENT RX Pantoprazole Sodium 40 mg 09/26/19 06:00 09/26/19 06:43 Protonix - PO 40 mg DAILY@0600 JUSTYNA Administration Multivit/Folic Acid/Iron 1 tab 09/23/19 10:00 09/26/19 11:47 Vitamins (Sjr) - PO 1 tab DAILY JUSTYNA Administration Pseudoephedrine/Triprolidine 1 combo 09/22/19 14:09 Actifed - PO TID PRN NASAL CONGESTION Quetiapine Fumarate 200 mg 09/24/19 20:31 09/25/19 21:38 Seroquel - PO 200 mg HS JUSTYNA Administration Sertraline HCl 100 mg 09/23/19 11:30 09/26/19 11:47 Zoloft - PO 100 mg DAILY JUSTYNA Administration Thiamine HCl 100 mg 09/22/19 22:00 09/25/19 21:39 Vitamin B1 - PO 100 mg HS JUSTYNA Administration Trazodone HCl 150 mg 09/23/19 22:00 09/25/19 21:38 Desyrel - PO 150 mg HS JUSTYNA Administration Medication(s) Change(s): Yes. Medications revisited. Records reviewed. Mr Emery is a reliable historian. Review of records ([facility]) confirms daily dose of quetiapine above 200 mg. Good tolerability has been well established. Intervention : seroquel is now raised to 300 mg po hs. Patient is reminded of potential for metabolic syndrome and sedation. He expresses agreement to this plan of care. Gave his informed consent (verbal) to MD. Psychiatry-Liaison will follow. Current Side Effect: No Lab tests ordered: No Lab tests reviewed: Yes Provider note:: Chart reviewed. Met with the patient. Complaints of insomnia + dysphoric mood are validated. Patient is reassured by changes made to his medications doses. Looking much better in spite of his complaints. Noted as well groomed, friendlier and more conversant. Stable mental status. See MSE report for details. Fair progress. Total face to face time:: 35 Mental Status Exam - Mental Status Exam Alert and Oriented to: Time, Place, Person Cognitive Function: Good Patient Appearance: Well Groomed Mood: Withdrawn, Anxious Affect: Appropriate, Constricted (mildly constricted) Patient Behavior: Fatigued, Appropriate, Cooperative Speech Pattern: Clear, Appropriate Voice Loudness: Normal Thought Process: Intact, Goal Oriented Thought Disorder: Not Present Hallucinations: Denies Suicidal Ideation: Denies Homicidal Ideation: Denies Insight/Judgement: Fair Sleep: Poorly, Difficulty falling asleep Appetite: Good Gait/Station: Other (walks with crutches) Psychiatric Treatment Plan - Problem List (1) Insomnia Current Visit: Yes Comment: . (2) Alcohol dependence Current Visit: Yes Comment: . (3) Nicotine dependence Current Visit: Yes Qualifiers: Nicotine product type: cigarettes Substance use status: uncomplicated Qualified Code(s): F17.210 - Nicotine dependence, cigarettes, uncomplicated Comment: . (4) Substance induced mood disorder Current Visit: Yes Comment: . (5) Schizoaffective disorder Current Visit: Yes Comment: .
[2019-09-26] MEDS: THIAMINE HCL 100 MG TABLET (FP) PO SCH (21:37)
[2019-09-26] MEDS: MELATONIN 5 MG TABLETS PO PRN (21:37)
[2019-09-26] MEDS: traZODone HCL 50 MG TABLET (FP) PO SCH (21:37)
[2019-09-26] MEDS ORDERED: QUEtiapine FUMARATE 200 MG TABLET PO SCH (22:00)
[2019-09-27] MEDS: DOCUSATE SODIUM 100 MG CAPSULE (FP) PO SCH ×3 (07:00→21:35)
[2019-09-27] MEDS: PANTOPRAZOLE 40 MG TABLET PO SCH (07:00)
[2019-09-27] MEDS: DIVALPROEX SODIUM 500 MG TABLET E.C. PO SCH ×2 (10:11→21:35)
[2019-09-27] MEDS: PRENATAL VITAMINS W/ FOLIC ACID TABLET (FP) PO SCH (10:11)
[2019-09-27] MEDS: SERTRALINE HCL 50 MG TABLET (FP) PO SCH (10:11)
[2019-09-27] MEDS: traZODone HCL 50 MG TABLET (FP) PO SCH (21:35)
[2019-09-27] MEDS: hydrOXYzine PAMOATE 25 MG CAPSULE (FP) PO PRN (21:35)
[2019-09-27] MEDS: THIAMINE HCL 100 MG TABLET (FP) PO SCH (21:36)
[2019-09-27] MEDS: MELATONIN 5 MG TABLETS PO PRN (21:36)
[2019-09-27] MEDS: QUEtiapine FUMARATE 300 MG TABLET PO SCH (21:37)
[2019-09-28] MEDS: DOCUSATE SODIUM 100 MG CAPSULE (FP) PO SCH ×3 (07:00→21:11)
[2019-09-28] MEDS: PANTOPRAZOLE 40 MG TABLET PO SCH (07:00)
[2019-09-28] MEDS: PRENATAL VITAMINS W/ FOLIC ACID TABLET (FP) PO SCH (12:05)
[2019-09-28] MEDS: SERTRALINE HCL 50 MG TABLET (FP) PO SCH (12:05)
[2019-09-28] MEDS: DIVALPROEX SODIUM 500 MG TABLET E.C. PO SCH ×2 (12:06→21:11)
[2019-09-28] MEDS: QUEtiapine FUMARATE 300 MG TABLET PO SCH (21:11)
[2019-09-28] MEDS: traZODone HCL 50 MG TABLET (FP) PO SCH (21:11)
[2019-09-28] MEDS: MELATONIN 5 MG TABLETS PO PRN (21:12)
[2019-09-28] MEDS: THIAMINE HCL 100 MG TABLET (FP) PO SCH (21:12)
[2019-09-29] MEDS: PANTOPRAZOLE 40 MG TABLET PO SCH (07:00)
[2019-09-29] MEDS: DOCUSATE SODIUM 100 MG CAPSULE (FP) PO SCH ×3 (07:00→21:33)
[2019-09-29] MEDS: DIVALPROEX SODIUM 500 MG TABLET E.C. PO SCH ×2 (11:04→21:34)
[2019-09-29] MEDS: PRENATAL VITAMINS W/ FOLIC ACID TABLET (FP) PO SCH (11:05)
[2019-09-29] MEDS: SERTRALINE HCL 50 MG TABLET (FP) PO SCH (11:05)
[2019-09-29 11:13] VITALS: TEMP 0
[2019-09-29] MEDS: traZODone HCL 50 MG TABLET (FP) PO SCH (21:33)
[2019-09-29] MEDS: QUEtiapine FUMARATE 300 MG TABLET PO SCH (21:33)
[2019-09-29] MEDS: MELATONIN 5 MG TABLETS PO PRN (21:34)
[2019-09-29] MEDS: THIAMINE HCL 100 MG TABLET (FP) PO SCH (21:34)
[2019-09-29] MEDS: MAGNESIUM HYDROX 2400MG/30ML ORAL SUSPENSION 30 ML CUP PO PRN (21:35)
[2019-09-30] MEDS: DOCUSATE SODIUM 100 MG CAPSULE (FP) PO SCH ×3 (07:30→21:53)
[2019-09-30] MEDS: PANTOPRAZOLE 40 MG TABLET PO SCH (07:31)
[2019-09-30] MEDS: DIVALPROEX SODIUM 500 MG TABLET E.C. PO SCH ×2 (10:04→22:46)
[2019-09-30] MEDS: SERTRALINE HCL 50 MG TABLET (FP) PO SCH (10:04)
[2019-09-30] MEDS: PRENATAL VITAMINS W/ FOLIC ACID TABLET (FP) PO SCH (10:04)
[2019-09-30] MEDS: traZODone HCL 50 MG TABLET (FP) PO SCH (21:53)
[2019-09-30] MEDS: THIAMINE HCL 100 MG TABLET (FP) PO SCH (21:54)
[2019-09-30] MEDS: QUEtiapine FUMARATE 300 MG TABLET PO SCH (21:54)
[2019-09-30] MEDS: MAGNESIUM HYDROX 2400MG/30ML ORAL SUSPENSION 30 ML CUP PO PRN (23:07)
[2019-10-01] MEDS: PANTOPRAZOLE 40 MG TABLET PO SCH (06:20)
[2019-10-01] MEDS: DOCUSATE SODIUM 100 MG CAPSULE (FP) PO SCH ×3 (06:20→21:42)
[2019-10-01 07:31] VITALS: BP 115/76; PULSE 90
[2019-10-01] MEDS: SERTRALINE HCL 50 MG TABLET (FP) PO SCH (10:54)
[2019-10-01] MEDS: PRENATAL VITAMINS W/ FOLIC ACID TABLET (FP) PO SCH (10:54)
[2019-10-01] MEDS: DIVALPROEX SODIUM 500 MG TABLET E.C. PO SCH ×2 (10:56→21:42)
[2019-10-01] MEDS: MAGNESIUM HYDROX 2400MG/30ML ORAL SUSPENSION 30 ML CUP PO PRN (10:56)
--- NOTE | 2019-10-01 15:51 | PN ---
Psychiatric Progress Note Vital Signs: Vital Signs Period Temp Pulse Resp BP Sys/Traylor Pulse Ox Last 24 Hr 90 18-18 115/76 Date of Session: 10/01/19 Chief Complaint:: " I take 600mg of seroquel." HPI: Patient admitted to for alcohol and cocaine dependence. Consultation ordered as patient is requesting an increase in seroquel. ROS: Patient is alert +oriented x X3. Current Medications: Active Medications Generic Name Dose Route Start Last Admin Trade Name Freq PRN Reason Stop Dose Admin Acetaminophen 650 mg 09/22/19 14:09 09/23/19 06:44 Tylenol - PO 650 mg Q6H PRN Administration FEVER Al Hydroxide/Mg Hydroxide 30 ml 09/22/19 14:09 Mylanta Oral Suspension - PO Q6H PRN DYSPEPSIA Divalproex Sodium 500 mg 09/23/19 11:15 10/01/19 10:56 Depakote - PO 500 mg BID JUSTYNA Administration Docusate Sodium 100 mg 09/25/19 14:00 10/01/19 14:17 Colace - PO Not Given TID JUSTYNA Eucalyptus/Menthol/Phenol/Sorbitol 1 each 09/22/19 14:09 Cepastat Lozenge - MM Q4H PRN SORE THROAT Guaifenesin 10 ml 09/22/19 14:09 Robitussin - PO Q6H PRN COUGH Hydroxyzine Pamoate 25 mg 09/22/19 14:09 09/27/19 21:35 Vistaril - PO 25 mg Q6H PRN Administration AGITATION Ibuprofen 400 mg 09/22/19 14:09 09/25/19 06:56 Motrin - PO 400 mg Q6H PRN Administration Pain Level 4-6 Loperamide HCl 4 mg 09/22/19 14:09 Imodium - PO Q6H PRN DIARRHEA Magnesium Hydroxide 30 ml 09/22/19 14:09 10/01/19 10:56 Milk Of Magnesia - PO 30 ml DAILY PRN Administration CONSTIPATION Melatonin 5 mg 09/22/19 22:00 09/29/19 21:34 Melatonin PO 5 mg HS PRN Administration INSOMNIA Nicotine Polacrilex 2 mg 09/22/19 14:13 Nicorette Gum - BUC Q2H PRN NICOTINE REPLACEMENT RX Pantoprazole Sodium 40 mg 09/26/19 06:00 10/01/19 06:20 Protonix - PO 40 mg DAILY@0600 JUSTYNA Administration Multivit/Folic Acid/Iron 1 tab 09/23/19 10:00 10/01/19 10:54 Vitamins (Sjr) - PO 1 tab DAILY JUSTYNA Administration Pseudoephedrine/Triprolidine 1 combo 09/22/19 14:09 Actifed - PO TID PRN NASAL CONGESTION Quetiapine Fumarate 300 mg 09/27/19 22:00 09/30/19 21:54 Seroquel - PO 300 mg HS JUSTYNA Administration Sertraline HCl 100 mg 09/23/19 11:30 10/01/19 10:54 Zoloft - PO 100 mg DAILY JUSTYNA Administration Thiamine HCl 100 mg 09/22/19 22:00 09/30/19 21:54 Vitamin B1 - PO 100 mg HS JUSTYNA Administration Trazodone HCl 150 mg 09/23/19 22:00 09/30/19 21:53 Desyrel - PO 150 mg HS JUSTYNA Administration Medication(s) Change(s): No. Current Side Effect: No Lab tests ordered: No Lab tests reviewed: Yes Provider note:: Patient seen by Dr. Cisneros and Dr. Atkinson. Dr. Cisneros and Dr. Atkinson's note read and appreciated. Today patient is requesting an increase in seroquel dose. States that he is prescribed seroquel 600mg. Notes reviewed and noted that prescriptions were verified by Dr. Cisneros. In addition patient is scheduled for discharge tomorrow morning. Patient informed that medications will not be ajusted the day before discharge. Patient denies psychotic, manic or depressive symptoms. States that he is ready for discharge as he is schedule to continue treatment at the [facility]. Patient encouraged to speak to the psychiatrist at the [facility] concerning his medications. Patient satisifed and receptive to feedback. Total face to face time:: 25 Mental Status Exam - Mental Status Exam Alert and Oriented to: Time, Place, Person Cognitive Function: Good Patient Appearance: Well Groomed Mood: Euthymic Affect: Appropriate Patient Behavior: Appropriate, Cooperative Speech Pattern: Appropriate Voice Loudness: Normal Thought Process: Intact, Goal Oriented Thought Disorder: Not Present Hallucinations: Denies Suicidal Ideation: Denies Insight/Judgement: Fair Sleep: Fair Appetite: Good Muscle strength/Tone: Normal Gait/Station: Other (Ambulates with a cane.) Psychiatric Treatment Plan - Problem List (1) Alcohol dependence Current Visit: Yes Comment: . (2) Substance induced mood disorder Current Visit: Yes Comment: . (3) Substance-induced sleep disorder Current Visit: Yes (4) Schizoaffective disorder Current Visit: Yes Comment: . (5) Cannabis dependence Current Visit: No (6) Nicotine dependence Current Visit: Yes Qualifiers: Nicotine product type: cigarettes Substance use status: uncomplicated Qualified Code(s): F17.210 - Nicotine dependence, cigarettes, uncomplicated Comment: .
[2019-10-01] MEDS: traZODone HCL 50 MG TABLET (FP) PO SCH (21:42)
[2019-10-01] MEDS: QUEtiapine FUMARATE 300 MG TABLET PO SCH (21:42)
[2019-10-01] MEDS: THIAMINE HCL 100 MG TABLET (FP) PO SCH (21:42)
[2019-10-02] MEDS: DOCUSATE SODIUM 100 MG CAPSULE (FP) PO SCH ×2 (07:21→13:47)
[2019-10-02] MEDS: PANTOPRAZOLE 40 MG TABLET PO SCH (07:22)
--- NOTE | 2019-10-02 10:30 | DS ---
[facility] Rehab Discharge Summary - [facility] Rehab Discharge Summary Admission Date: 09/22/19 Discharge Date: 10/02/19 - History Present History: Alcohol dependence, Cannabis dependence Additional Comments: pt is a 54 y/o male with a hx of REESE admitted to rehab and discharged today. Pertinent Past History: GERD Gastritis Use of crutches for ambulation-Hx of use of walker/cane for ambulation Hx of falls Schizoaffective Disorder Bipolar Disorder - Discharge Physical Exam Vital Signs: Vital Signs Temperature 0 F L 09/29/19 10:00 Pulse Rate 90 10/01/19 07:30 Respiratory Rate 18 10/02/19 03:30 Blood Pressure 115/76 10/01/19 07:30 O2 Sat by Pulse Oximetry (%) Alert o x 3,denies s/h/i nad oob ambulating with crutches cardiac:s1 s2, rrr lungs;cta,heather. abdomen;+bs,soft,nt,nd extremities/skin;no edema; active leg raise while sitting down; skin intact. Pertinent Admission Physical Exam Findings: status stable from detox admission - Treatment Discharge Condition: Discharge condition good Hospital Course: Rehabilitated safely CD aftercare referral accepted. - Medication Discharge Medications: Ambulatory Orders Sertraline HCl [Zoloft -] 200 mg PO DAILY #30 tablet 10/10/17 Quetiapine Fumarate [Seroquel -] 100 mg PO DAILY 09/18/19 Quetiapine Fumarate [Seroquel -] 200 mg PO HS 09/18/19 Ranitidine HCl [Zantac 75] 50 mg PO DAILY 09/18/19 traZODone HCL [Desyrel -] 200 mg PO HS 09/18/19 Divalproex [Depakote -] 500 mg PO BID #60 tablet.ec 10/02/19 Docusate Sodium [Colace -] 100 mg PO TID #90 capsule 10/02/19 Quetiapine Fumarate [Seroquel -] 300 mg PO HS #30 tablet 10/02/19 Sertraline HCl [Zoloft] 100 mg PO DAILY #30 tablet 10/02/19 Trazodone HCl 150 mg PO HS #30 tablet 10/02/19 - Medication-Assisted Treatment (MAT) Medication-Assisted Treatment (MAT): No - Discharge Instructions Diet, activity, other medical instructions: Diet:Regular Activity: oob ad davi with crutch as aid Other medical instructions:follow up with CD aftercare at [facility] as scheduled. follow up with your primary care at [facility] every 3 months as scheduled. - Diagnosis (1) Alcohol dependence Status: Chronic Qualifiers: Substance use status: uncomplicated Qualified Code(s): F10.20 - Alcohol dependence, uncomplicated (2) Nicotine dependence Status: Chronic Qualifiers: Nicotine product type: cigarettes Substance use status: uncomplicated Qualified Code(s): F17.210 - Nicotine dependence, cigarettes, uncomplicated (3) Cannabis dependence Status: Chronic (4) Constipation Status: Chronic Qualifiers: Constipation type: unspecified constipation type Qualified Code(s): K59.00 - Constipation, unspecified (5) ARTHRITS Status: Chronic (6) Crutches as ambulation aid Status: Chronic (7) GERD (gastroesophageal reflux disease) Status: Chronic Qualifiers: Esophagitis presence: esophagitis presence not specified Qualified Code(s) : K21.9 - Gastro-esophageal reflux disease without esophagitis (8) Gastritis Status: Chronic (9) Risk for falls Status: Chronic - Follow-up Referral Minutes to complete discharge: 20 - AMA Did Patient Leave Against Medical Advice: No
--- NOTE | 2019-10-02 11:03 | PN ---
[facility] Progress Note Note: Patient is discharged today. Scripts for 30 days supply of medications(Depakote 500 mg/bid, Zoloft 100 mg/day, Seroquel 300 mg/hs, Trazadone 150 mg/hs) are electronically transmitted to [facility] at [address] [place], [place] [id number]
[2019-10-02] MEDS: PRENATAL VITAMINS W/ FOLIC ACID TABLET (FP) PO SCH (13:18)
[2019-10-02] MEDS: SERTRALINE HCL 50 MG TABLET (FP) PO SCH (13:18)
[2019-10-02] MEDS: DIVALPROEX SODIUM 500 MG TABLET E.C. PO SCH (13:19)
== END 2019-10-02 15:54 | disposition home or self-care (01) | DRG 772 ==
LOC: YASAS 12:54 → Y5N 12:55
PROVIDERS: ADMIT Neuromusculoskeletal Medicine & OMM; ATTEND Neuromusculoskeletal Medicine & OMM
PROC: HZ42ZZZ Group Counseling for Substance Abuse Treatment, Cognitive-Behavioral (ICD-10-PCS; principal; 2019-09-22)
DX: F10.20 Alcohol dependence, uncomplicated (principal); F14.20 Cocaine dependence, uncomplicated; F12.20 Cannabis dependence, uncomplicated; F17.210 Nicotine dependence, cigarettes, uncomplicated; F19.282 Other psychoactive substance dependence with psychoactive substance-induced sleep disorder; F19.24 Other psychoactive substance dependence with psychoactive substance-induced mood disorder; F31.9 Bipolar disorder, unspecified; F25.9 Schizoaffective disorder, unspecified; K21.9 Gastro-esophageal reflux disease without esophagitis; K29.70 Gastritis, unspecified, without bleeding; K59.00 Constipation, unspecified; M12.9 Arthropathy, unspecified; G47.00 Insomnia, unspecified; Z91.81 History of falling; Z99.89 Dependence on other enabling machines and devices; Z96.653 Presence of artificial knee joint, bilateral; Z94.5 Skin transplant status

== ENCOUNTER 2021-10-29 14:44 | Inpatient (IN) | payer OTHER ==
[2021-10-29] MEDS ORDERED: MENTHOL/PHENOL 1 EACH UD MM PRN (17:01)
[2021-10-29] MEDS ORDERED: ACETAMINOPHEN 325 MG TABLET (FP) PO PRN (17:01)
[2021-10-29] MEDS ORDERED: MAGNESIUM HYDROX 2400MG/30ML ORAL SUSPENSION 30 ML CUP PO PRN (17:01)
[2021-10-29] MEDS ORDERED: MAGNESIUM CITRATE 300 ML BOTTLE PO PRN (17:01)
[2021-10-29] MEDS ORDERED: LOPERAMIDE HCL 2 MG CAPSULE PO PRN (17:01)
[2021-10-29] MEDS ORDERED: MAG HYDROX/AL HYDROX/SIMETH 30 ML UNIT-DOSE CUP PO PRN (17:01)
[2021-10-29] MEDS ORDERED: IBUPROFEN 400 MG TABLET (FP) PO PRN (17:01)
[2021-10-29] MEDS ORDERED: chlordiazePOXIDE HCL 25 MG CAPSULE PO PRN (17:03)
[2021-10-29] MEDS: chlordiazePOXIDE HCL 25 MG CAPSULE PO SCH (17:31)
[2021-10-29] MEDS ORDERED: chlordiazePOXIDE HCL 25 MG CAPSULE ONE (17:31)
[2021-10-29] MEDS ORDERED: TETRAHYDROZOLINE HCL EYE DROPS OU PRN (23:17)
[2021-10-30 01:30] VITALS: BMI 25.1
[2021-10-30] MEDS: chlordiazePOXIDE HCL 25 MG CAPSULE PO SCH ×5 (02:03→22:14)
[2021-10-30] MEDS: THIAMINE HCL 100 MG TABLET (FP) PO SCH ×2 (02:05→22:14)
[2021-10-30] MEDS: FAMOTIDINE 20 MG TABLET PO SCH ×2 (02:05→11:01)
[2021-10-30] MEDS: PRENATAL VITAMINS W/ FOLIC ACID TABLET (FP) PO SCH (11:01)
[2021-10-30 12:32] LABS: HEMATOCRIT 40.1 % (35.4-49); HEMOGLOBIN 13.4 GM/dL (11.7-16.9); MCH 32.3 pg (25.7-33.7); MCHC 33.5 g/dl (32.0-35.9); MEAN CELL VOLUME 96.4 fl (80-96); MEAN PLT VOLUME 8.8 fl (7.5-11.1); PLATELET COUNT 179 10^3/uL (134-434); RBC 4.16 M/mm3 (4.00-5.60); RDW 14.5 % (11.9-15.9); WHITE BLOOD COUNT 4.7 K/mm3 (4.0-10.0)
[2021-10-30 12:46] LABS: CALCIUM 9.4 mg/dL (8.5-10.1)
[2021-10-30 12:47] LABS: ALBUMIN 3.8 g/dl (3.4-5.0); BLOOD UREA NITROGEN 15.1 mg/dL (7-18)
[2021-10-30 12:48] LABS: CREATININE 0.8 mg/dL (0.55-1.3)
[2021-10-30 12:50] LABS: TOT PROT 7.8 g/dl (6.4-8.2)
[2021-10-30] MEDS: BISMUTH SUBSALICYLATE 524 MG/30 ML PO PRN ×2 (15:15→20:08)
[2021-10-30] MEDS: POTASSIUM CHLORIDE TABS 20 MEQ TABLET.ER (FP) PO SCH (18:16)
[2021-10-30] MEDS ORDERED: traZODone HCL 50 MG TABLET (FP) PO SCH (22:00)
[2021-10-30] MEDS: traZODone HCL 50 MG TABLET (FP) PO SCH (22:13)
[2021-10-30] MEDS: QUEtiapine FUMARATE 200 MG TABLET PO SCH (22:13)
[2021-10-30] MEDS: DIVALPROEX SODIUM 500 MG TABLET E.C. PO SCH (22:13)
[2021-10-31] MEDS: METHOCARBAMOL 500 MG TABLET PO PRN (05:41)
[2021-10-31] MEDS: chlordiazePOXIDE HCL 25 MG CAPSULE PO SCH ×4 (05:41→22:51)
[2021-10-31] MEDS: POTASSIUM CHLORIDE TABS 20 MEQ TABLET.ER (FP) PO SCH ×2 (05:41→18:31)
[2021-10-31] MEDS: PRENATAL VITAMINS W/ FOLIC ACID TABLET (FP) PO SCH (11:39)
[2021-10-31] MEDS: DIVALPROEX SODIUM 500 MG TABLET E.C. PO SCH ×2 (11:40→22:52)
[2021-10-31] MEDS: FAMOTIDINE 20 MG TABLET PO SCH (11:40)
[2021-10-31] MEDS: traZODone HCL 50 MG TABLET (FP) PO SCH (22:52)
[2021-10-31] MEDS: THIAMINE HCL 100 MG TABLET (FP) PO SCH (22:52)
[2021-10-31] MEDS: QUEtiapine FUMARATE 200 MG TABLET PO SCH (22:52)
[2021-10-31] MEDS: MELATONIN 5 MG TABLETS PO PRN (22:52)
[2021-10-31] MEDS: hydrOXYzine PAMOATE 25 MG CAPSULE (FP) PO PRN (22:52)
[2021-11-01] MEDS ORDERED: chlordiazePOXIDE HCL 10 MG CAPSULE PO PRN
[2021-11-01] MEDS: chlordiazePOXIDE HCL 10 MG CAPSULE PO SCH ×4 (06:50→22:23)
[2021-11-01] MEDS: DIVALPROEX SODIUM 500 MG TABLET E.C. PO SCH ×2 (10:57→22:24)
[2021-11-01] MEDS: PRENATAL VITAMINS W/ FOLIC ACID TABLET (FP) PO SCH (10:57)
[2021-11-01] MEDS: FAMOTIDINE 20 MG TABLET PO SCH (10:57)
[2021-11-01] MEDS: BISMUTH SUBSALICYLATE 524 MG/30 ML PO PRN ×3 (19:17→22:26)
[2021-11-01] MEDS: hydrOXYzine PAMOATE 25 MG CAPSULE (FP) PO PRN (22:24)
[2021-11-01] MEDS: traZODone HCL 50 MG TABLET (FP) PO SCH (22:24)
[2021-11-01] MEDS: QUEtiapine FUMARATE 200 MG TABLET PO SCH (22:24)
[2021-11-01] MEDS: THIAMINE HCL 100 MG TABLET (FP) PO SCH (22:24)
[2021-11-02] MEDS: chlordiazePOXIDE HCL 10 MG CAPSULE PO SCH ×2 (06:26→17:32)
[2021-11-02] MEDS: FAMOTIDINE 20 MG TABLET PO SCH (11:01)
[2021-11-02] MEDS: PRENATAL VITAMINS W/ FOLIC ACID TABLET (FP) PO SCH (11:01)
[2021-11-02] MEDS: DIVALPROEX SODIUM 500 MG TABLET E.C. PO SCH ×2 (11:01→22:30)
[2021-11-02] MEDS: ONDANSETRON *ODT* 4 MG TABLET SL PRN (11:02)
[2021-11-02] MEDS: ACETAMINOPHEN 325 MG TABLET (FP) PO PRN (17:33)
[2021-11-02] MEDS: traZODone HCL 50 MG TABLET (FP) PO SCH (22:30)
[2021-11-02] MEDS: THIAMINE HCL 100 MG TABLET (FP) PO SCH (22:30)
[2021-11-02] MEDS: QUEtiapine FUMARATE 200 MG TABLET PO SCH (22:30)
[2021-11-02] MEDS: METHOCARBAMOL 500 MG TABLET PO PRN (22:31)
[2021-11-03] MEDS ORDERED: chlordiazePOXIDE HCL 10 MG CAPSULE PO ONE (05:00)
[2021-11-03] MEDS: ONDANSETRON *ODT* 4 MG TABLET SL PRN (06:25)
[2021-11-03] MEDS: FAMOTIDINE 20 MG TABLET PO SCH (10:15)
[2021-11-03] MEDS: PRENATAL VITAMINS W/ FOLIC ACID TABLET (FP) PO SCH (10:15)
[2021-11-03] MEDS: DIVALPROEX SODIUM 500 MG TABLET E.C. PO SCH ×2 (10:15→22:29)
[2021-11-03] MEDS ORDERED: TRIMETHOBENZAMIDE HCL 200MG/2ML INJ IM PRN (11:28)
[2021-11-03] MEDS ORDERED: QUEtiapine FUMARATE 300 MG TABLET PO SCH (22:00)
[2021-11-03] MEDS: MELATONIN 5 MG TABLETS PO PRN (22:28)
[2021-11-03] MEDS: METHOCARBAMOL 500 MG TABLET PO PRN (22:29)
[2021-11-03] MEDS: THIAMINE HCL 100 MG TABLET (FP) PO SCH (22:29)
[2021-11-03] MEDS: hydrOXYzine PAMOATE 25 MG CAPSULE (FP) PO PRN (22:29)
[2021-11-03] MEDS: traZODone HCL 50 MG TABLET (FP) PO SCH (22:29)
[2021-11-03] MEDS: ACETAMINOPHEN 325 MG TABLET (FP) PO PRN (22:32)
[2021-11-04] MEDS: DIVALPROEX SODIUM 500 MG TABLET E.C. PO SCH (11:47)
[2021-11-04] MEDS: FAMOTIDINE 20 MG TABLET PO SCH (11:48)
[2021-11-04] MEDS: PRENATAL VITAMINS W/ FOLIC ACID TABLET (FP) PO SCH (11:48)
[2021-11-04 16:59] VITALS: BP 146/87; PULSE 73; TEMP 98.4
[2021-11-05 13:08] LABS: SARS-CoV-2 NAA Not Detected
== END 2021-11-04 18:08 | disposition short-term general hospital (02) | DRG 775 ==
LOC: YASAS 14:44 → Y3N 22:52
PROVIDERS: ADMIT Allergy & Immunology; ATTEND Allergy & Immunology
PROC: HZ2ZZZZ Detoxification Services for Substance Abuse Treatment (ICD-10-PCS; principal; 2021-10-29)
DX: F10.230 Alcohol dependence with withdrawal, uncomplicated (principal); F12.20 Cannabis dependence, uncomplicated; F17.210 Nicotine dependence, cigarettes, uncomplicated; F25.9 Schizoaffective disorder, unspecified; R45.851 Suicidal ideations; E87.6 Hypokalemia; G47.00 Insomnia, unspecified; K21.9 Gastro-esophageal reflux disease without esophagitis; H40.9 Unspecified glaucoma; R74.01 Elevation of levels of liver transaminase levels; Z99.89 Dependence on other enabling machines and devices; Z86.19 Personal history of other infectious and parasitic diseases; Z87.828 Personal history of other (healed) physical injury and trauma; Z88.0 Allergy status to penicillin; Z56.0 Unemployment, unspecified; Z59.01 Sheltered homelessness
CPT/HCPCS: 36415; 80053; 80164; 84132; 85027; 86780; C9803; Q0162; U0003; U0005

== ENCOUNTER 2022-11-25 12:05 | Inpatient (IN) | payer OTHER ==
[2022-11-25 13:41] VITALS: BMI 26.4
[2022-11-25] MEDS ORDERED: MAGNESIUM HYDROX 2400MG/30ML ORAL SUSPENSION 30 ML CUP PO PRN (14:11)
[2022-11-25] MEDS ORDERED: NICOTINE 10 MG CARTRIDGE (INHALER) IH PRN (14:11)
[2022-11-25] MEDS ORDERED: ONDANSETRON *ODT* 4 MG TABLET SL PRN (14:11)
[2022-11-25] MEDS ORDERED: LOPERAMIDE HCL 2 MG CAPSULE PO PRN (14:11)
[2022-11-25] MEDS ORDERED: guaiFENesin 600 MG TABLET.ER (FP) PO PRN (14:11)
[2022-11-25] MEDS ORDERED: BENZOCAINE/MENTHOL (CHLORASEPTIC ) LOZENGE MM PRN (14:11)
[2022-11-25] MEDS ORDERED: POLYETHYLENE GLYCOL (HEALTHYLAX) 3350 17 GM PACKET PO PRN (14:11)
[2022-11-25] MEDS ORDERED: chlordiazePOXIDE HCL 25 MG CAPSULE PO PRN (14:11)
[2022-11-25] MEDS ORDERED: IBUPROFEN 400 MG TABLET (FP) PO PRN (14:11)
[2022-11-25] MEDS ORDERED: BENZONATATE 200 MG CAPSULE PO PRN (14:11)
[2022-11-25] MEDS ORDERED: BISMUTH SUBSALICYLATE 524 MG/30 ML PO PRN (14:11)
[2022-11-25] MEDS ORDERED: METHOCARBAMOL 500 MG TABLET PO PRN (14:11)
[2022-11-25] MEDS ORDERED: NALOXONE HCL (KLOXXADO) 8 MG SPRAY NS PRN (14:11)
[2022-11-25] MEDS ORDERED: ACETAMINOPHEN 325 MG TABLET (FP) PO PRN (14:11)
[2022-11-25] MEDS ORDERED: NALOXONE HCL 0.4 MG/ML VIAL IM PRN (14:11)
[2022-11-25] MEDS ORDERED: IBUPROFEN 600 MG TABLET (FP) PO PRN (14:11)
[2022-11-25] MEDS ORDERED: MAG HYDROX/AL HYDROX/SIMETH 30 ML UNIT-DOSE CUP PO PRN (14:11)
[2022-11-25] MEDS ORDERED: DICYCLOMINE HCL 10 MG CAPSULE PO PRN (14:11)
[2022-11-25] MEDS: PRENATAL VITAMINS W/ FOLIC ACID TABLET (FP) PO SCH (15:23)
[2022-11-25] MEDS: NICOTINE 7 MG/24 HOURS TOPICAL PATCH TD SCH (15:30)
[2022-11-25] MEDS: chlordiazePOXIDE HCL 25 MG CAPSULE PO SCH ×2 (17:53→22:54)
[2022-11-25] MEDS ORDERED: MELATONIN 5 MG TABLETS PO SCH (22:00)
[2022-11-25] MEDS: THIAMINE HCL 100 MG TABLET (FP) PO SCH (22:53)
[2022-11-25] MEDS: QUEtiapine FUMARATE 300 MG TABLET PO SCH (22:54)
[2022-11-25] MEDS: DIVALPROEX SODIUM 500 MG TABLET E.C. PO SCH (22:54)
[2022-11-26] MEDS: chlordiazePOXIDE HCL 25 MG CAPSULE PO SCH ×4 (05:44→22:05)
[2022-11-26] MEDS: NICOTINE 7 MG/24 HOURS TOPICAL PATCH TD SCH (10:18)
[2022-11-26] MEDS: FAMOTIDINE 10 MG TABLET PO SCH (10:18)
[2022-11-26] MEDS: PRENATAL VITAMINS W/ FOLIC ACID TABLET (FP) PO SCH (10:19)
[2022-11-26] MEDS: DIVALPROEX SODIUM 500 MG TABLET E.C. PO SCH ×2 (10:19→22:04)
[2022-11-26 10:46] LABS: HEMATOCRIT 40.4 % (35.4-49); HEMOGLOBIN 13.7 GM/dL (11.7-16.9); MCH 32.7 pg (25.7-33.7); MCHC 33.9 g/dl (32.0-35.9); MEAN CELL VOLUME 96.3 fl (80-96); PLATELET COUNT 187 10^3/uL (134-434); RBC 4.19 M/mm3 (4.00-5.60); RDW 14.6 % (11.9-15.9); WHITE BLOOD COUNT 3.4 K/mm3 (4.0-10.0)
[2022-11-26 10:58] LABS: ALBUMIN 3.5 g/dl (3.4-5.0); CALCIUM 8.7 mg/dL (8.5-10.1)
[2022-11-26 10:59] LABS: BLOOD UREA NITROGEN 11.9 mg/dL (7-18)
[2022-11-26 11:01] LABS: CREATININE 0.7 mg/dL (0.55-1.3)
[2022-11-26 11:03] LABS: BILIRUBIN,TOTAL 1.4 mg/dL (0.2-1); TOT PROT 6.8 g/dl (6.4-8.2)
[2022-11-26] MEDS ORDERED: TRIMETHOBENZAMIDE HCL 200MG/2ML INJ IM ONE (14:30)
[2022-11-26] MEDS ORDERED: FAMOTIDINE 20 MG TABLET PO ONE (21:40)
[2022-11-26] MEDS: QUEtiapine FUMARATE 300 MG TABLET PO SCH (22:05)
[2022-11-26] MEDS: THIAMINE HCL 100 MG TABLET (FP) PO SCH (22:05)
[2022-11-27] MEDS: chlordiazePOXIDE HCL 25 MG CAPSULE PO SCH ×4 (05:29→22:43)
[2022-11-27] MEDS: PRENATAL VITAMINS W/ FOLIC ACID TABLET (FP) PO SCH (10:34)
[2022-11-27] MEDS: DIVALPROEX SODIUM 500 MG TABLET E.C. PO SCH ×2 (10:34→22:42)
[2022-11-27] MEDS: FAMOTIDINE 10 MG TABLET PO SCH (10:34)
[2022-11-27] MEDS: NICOTINE 7 MG/24 HOURS TOPICAL PATCH TD SCH (10:35)
[2022-11-27 10:50] LABS: AMYLASE 137 U/L (25-115)
[2022-11-27 10:52] LABS: LIPASE 241 U/L (73-393)
[2022-11-27] MEDS: LACTULOSE 20 GM/30 ML UDC (FOR ORAL USE ONLY) PO SCH ×3 (13:22→22:42)
[2022-11-27] MEDS: THIAMINE HCL 100 MG TABLET (FP) PO SCH (22:42)
[2022-11-27] MEDS: QUEtiapine FUMARATE 300 MG TABLET PO SCH (22:42)
[2022-11-28] MEDS ORDERED: chlordiazePOXIDE HCL 10 MG CAPSULE PO PRN
[2022-11-28] MEDS: hydrOXYzine PAMOATE 25 MG CAPSULE (FP) PO PRN ×2 (03:47→13:57)
[2022-11-28] MEDS ORDERED: chlordiazePOXIDE HCL 10 MG CAPSULE PO SCH (05:00)
[2022-11-28] MEDS: chlordiazePOXIDE HCL 10 MG CAPSULE PO SCH ×2 (05:24→17:02)
[2022-11-28] MEDS: FAMOTIDINE 10 MG TABLET PO SCH (10:04)
[2022-11-28] MEDS: NICOTINE 7 MG/24 HOURS TOPICAL PATCH TD SCH (10:04)
[2022-11-28] MEDS: PRENATAL VITAMINS W/ FOLIC ACID TABLET (FP) PO SCH (10:04)
[2022-11-28] MEDS: DIVALPROEX SODIUM 500 MG TABLET E.C. PO SCH ×2 (10:04→22:48)
[2022-11-28] MEDS: LACTULOSE 20 GM/30 ML UDC (FOR ORAL USE ONLY) PO SCH ×4 (10:05→22:48)
[2022-11-28] MEDS ORDERED: FAMOTIDINE 10 MG TABLET PO SCH (10:09)
[2022-11-28] MEDS ORDERED: FAMOTIDINE 10 MG TABLET PO ONE (10:11)
[2022-11-28 18:08] VITALS: RESP 18
[2022-11-28] MEDS: QUEtiapine FUMARATE 300 MG TABLET PO SCH (22:48)
[2022-11-28] MEDS: THIAMINE HCL 100 MG TABLET (FP) PO SCH (22:49)
[2022-11-29] MEDS ORDERED: chlordiazePOXIDE HCL 10 MG CAPSULE PO ONE (05:00)
[2022-11-29] MEDS ORDERED: chlordiazePOXIDE HCL 10 MG CAPSULE PO SCH (05:00)
[2022-11-29] MEDS: PRENATAL VITAMINS W/ FOLIC ACID TABLET (FP) PO SCH (09:23)
[2022-11-29] MEDS: DIVALPROEX SODIUM 500 MG TABLET E.C. PO SCH (09:24)
[2022-11-29] MEDS: LACTULOSE 20 GM/30 ML UDC (FOR ORAL USE ONLY) PO SCH (09:25)
[2022-11-29] MEDS: NICOTINE 7 MG/24 HOURS TOPICAL PATCH TD SCH (09:26)
[2022-11-29 09:49] VITALS: BP 150/87; PULSE 110; TEMP 98
[2022-11-29] MEDS ORDERED: FAMOTIDINE 20 MG TABLET PO SCH (10:00)
[2022-11-30] MEDS ORDERED: chlordiazePOXIDE HCL 10 MG CAPSULE PO ONE (05:00)
== END 2022-11-29 12:24 | disposition home or self-care (01) | DRG 775 ==
LOC: YASAS 12:05 → Y6N 14:28
PROVIDERS: ADMIT Allergy & Immunology; ATTEND Surgery
PROC: HZ2ZZZZ Detoxification Services for Substance Abuse Treatment (ICD-10-PCS; principal; 2022-11-25)
DX: F10.230 Alcohol dependence with withdrawal, uncomplicated (principal); F12.20 Cannabis dependence, uncomplicated; F17.210 Nicotine dependence, cigarettes, uncomplicated; F19.282 Other psychoactive substance dependence with psychoactive substance-induced sleep disorder; F19.24 Other psychoactive substance dependence with psychoactive substance-induced mood disorder; F31.9 Bipolar disorder, unspecified; F43.10 Post-traumatic stress disorder, unspecified; K21.9 Gastro-esophageal reflux disease without esophagitis; R79.89 Other specified abnormal findings of blood chemistry; Z96.653 Presence of artificial knee joint, bilateral; Z87.828 Personal history of other (healed) physical injury and trauma; Z59.01 Sheltered homelessness; Z88.0 Allergy status to penicillin
CPT/HCPCS: 36415; 80053; 82140; 82150; 83690; 85027; 86780; 87811; C9803-CS; U0003; U0005

== ENCOUNTER 2023-05-06 13:19 | Inpatient (IN) | payer OTHER ==
[2023-05-06 15:40] VITALS: BMI 25.1
[2023-05-06] MEDS ORDERED: guaiFENesin 600 MG TABLET.ER (FP) PO PRN (17:55)
[2023-05-06] MEDS ORDERED: BENZONATATE 200 MG CAPSULE PO PRN (17:55)
[2023-05-06] MEDS ORDERED: POLYETHYLENE GLYCOL (HEALTHYLAX) 3350 17 GM PACKET PO PRN (17:55)
[2023-05-06] MEDS ORDERED: IBUPROFEN 600 MG TABLET (FP) PO PRN (17:55)
[2023-05-06] MEDS ORDERED: DICYCLOMINE HCL 10 MG CAPSULE PO PRN (17:55)
[2023-05-06] MEDS ORDERED: LOPERAMIDE HCL 2 MG CAPSULE PO PRN (17:55)
[2023-05-06] MEDS ORDERED: ACETAMINOPHEN 325 MG TABLET (FP) PO PRN (17:55)
[2023-05-06] MEDS ORDERED: BENZOCAINE/MENTHOL (CHLORASEPTIC ) LOZENGE MM PRN (17:55)
[2023-05-06] MEDS ORDERED: MAGNESIUM HYDROX 2400MG/30ML ORAL SUSPENSION 30 ML CUP PO PRN (17:55)
[2023-05-06] MEDS ORDERED: ONDANSETRON *ODT* 4 MG TABLET SL PRN (17:55)
[2023-05-06] MEDS ORDERED: BISMUTH SUBSALICYLATE 524 MG/30 ML PO PRN (17:55)
[2023-05-06] MEDS ORDERED: P-EPHED 60MG/TRIPROLIDI 2.5MG TABLET PO PRN (17:55)
[2023-05-06] MEDS ORDERED: IBUPROFEN 400 MG TABLET (FP) PO PRN (17:55)
[2023-05-06] MEDS ORDERED: METOPROLOL TARTRATE 25 MG TABLET (FP) PO ONE (19:20)
[2023-05-06] MEDS ORDERED: MELATONIN 5 MG TABLETS PO SCH (22:00)
[2023-05-06] MEDS: THIAMINE HCL 100 MG TABLET (FP) PO SCH (23:05)
[2023-05-07] MEDS: MAG HYDROX/AL HYDROX/SIMETH 30 ML UNIT-DOSE CUP PO PRN (06:05)
[2023-05-07] MEDS: METHOCARBAMOL 500 MG TABLET PO PRN ×2 (10:06→22:21)
[2023-05-07] MEDS: PRENATAL VITAMINS W/ FOLIC ACID TABLET (FP) PO SCH (10:06)
[2023-05-07] MEDS: hydrOXYzine PAMOATE 25 MG CAPSULE (FP) PO PRN ×2 (10:06→18:39)
[2023-05-07 10:38] LABS: CHLORIDE 107 mmol/L (98-107); HEMATOCRIT 42.8 % (35.4-49); HEMOGLOBIN 14.1 GM/dL (11.7-16.9); MCH 30.9 pg (25.7-33.7); MCHC 32.9 g/dl (32.0-35.9); MEAN CELL VOLUME 93.9 fl (80-96); MEAN PLT VOLUME 8.9 fl (7.5-11.1); PLATELET COUNT 238 10^3/uL (134-434); POTASSIUM 4.3 mmol/L (3.5-5.1); RBC 4.56 M/mm3 (4.00-5.60); RDW 16.2 % (11.9-15.9); SODIUM 138 mmol/L (136-145); WHITE BLOOD COUNT 5.4 K/mm3 (4.0-10.0)
[2023-05-07 10:42] LABS: ALBUMIN 3.8 g/dl (3.4-5.0); ANION GAP 9 MMOL/L (8-16); CO2 22 mmol/L (21-32); GLUCOSE,RANDOM 80 mg/dL (74-106)
[2023-05-07 10:45] LABS: BILIRUBIN,TOTAL 1.2 mg/dL (0.2-1); CREATININE 0.8 mg/dL (0.55-1.3); SGOT/AST 29 U/L (15-37); SGPT/ALT 28 U/L (13-61)
[2023-05-07 10:47] LABS: ALK PHOS 65 U/L (45-117); TOT PROT 7.7 g/dl (6.4-8.2)
[2023-05-07] MEDS: QUEtiapine FUMARATE 200 MG TABLET PO SCH (22:20)
[2023-05-07] MEDS: THIAMINE HCL 100 MG TABLET (FP) PO SCH (22:20)
[2023-05-08] MEDS ORDERED: chlordiazePOXIDE HCL 25 MG CAPSULE PO PRN (08:33)
[2023-05-08] MEDS ORDERED: chlordiazePOXIDE HCL 25 MG CAPSULE PO ONE (09:09)
[2023-05-08] MEDS ORDERED: ONDANSETRON 4 MG/2 ML VIAL IM PRN ×2 (09:29→09:31)
[2023-05-08] MEDS ORDERED: ONDANSETRON *ODT* 4 MG TABLET SL ONE (09:29)
[2023-05-08] MEDS: PRENATAL VITAMINS W/ FOLIC ACID TABLET (FP) PO SCH (09:37)
[2023-05-08] MEDS: chlordiazePOXIDE HCL 25 MG CAPSULE PO SCH ×3 (11:46→22:15)
[2023-05-08] MEDS: hydrOXYzine PAMOATE 25 MG CAPSULE (FP) PO PRN (20:27)
[2023-05-08] MEDS: THIAMINE HCL 100 MG TABLET (FP) PO SCH (22:15)
[2023-05-08] MEDS: QUEtiapine FUMARATE 200 MG TABLET PO SCH (22:15)
[2023-05-08] MEDS: METHOCARBAMOL 500 MG TABLET PO PRN (22:19)
[2023-05-09] MEDS: chlordiazePOXIDE HCL 25 MG CAPSULE PO SCH ×4 (05:11→22:51)
[2023-05-09] MEDS: PRENATAL VITAMINS W/ FOLIC ACID TABLET (FP) PO SCH (10:33)
[2023-05-09] MEDS: METHOCARBAMOL 500 MG TABLET PO PRN ×2 (10:34→22:53)
[2023-05-09] MEDS: hydrOXYzine PAMOATE 25 MG CAPSULE (FP) PO PRN (10:34)
[2023-05-09] MEDS ORDERED: FAMOTIDINE 20 MG TABLET PO SCH (15:30)
[2023-05-09] MEDS: QUEtiapine FUMARATE 200 MG TABLET PO SCH (22:50)
[2023-05-09] MEDS: THIAMINE HCL 100 MG TABLET (FP) PO SCH (22:51)
[2023-05-10] MEDS: chlordiazePOXIDE HCL 10 MG CAPSULE PO SCH ×4 (05:56→22:27)
[2023-05-10] MEDS: FAMOTIDINE 20 MG TABLET PO SCH (06:27)
[2023-05-10] MEDS: PRENATAL VITAMINS W/ FOLIC ACID TABLET (FP) PO SCH (10:33)
[2023-05-10] MEDS: METHOCARBAMOL 500 MG TABLET PO PRN ×3 (10:34→22:29)
[2023-05-10] MEDS: hydrOXYzine PAMOATE 25 MG CAPSULE (FP) PO PRN (10:34)
[2023-05-10] MEDS: QUEtiapine FUMARATE 200 MG TABLET PO SCH (22:27)
[2023-05-10] MEDS: THIAMINE HCL 100 MG TABLET (FP) PO SCH (22:27)
[2023-05-10] MEDS: MAG HYDROX/AL HYDROX/SIMETH 30 ML UNIT-DOSE CUP PO PRN (22:30)
[2023-05-11] MEDS: chlordiazePOXIDE HCL 10 MG CAPSULE PO SCH ×2 (05:25→17:56)
[2023-05-11] MEDS: FAMOTIDINE 20 MG TABLET PO SCH (05:26)
[2023-05-11] MEDS: MAG HYDROX/AL HYDROX/SIMETH 30 ML UNIT-DOSE CUP PO PRN (06:08)
[2023-05-11] MEDS: PRENATAL VITAMINS W/ FOLIC ACID TABLET (FP) PO SCH (10:15)
[2023-05-11] MEDS: THIAMINE HCL 100 MG TABLET (FP) PO SCH (23:33)
[2023-05-11] MEDS: QUEtiapine FUMARATE 200 MG TABLET PO SCH (23:54)
[2023-05-12] MEDS ORDERED: chlordiazePOXIDE HCL 10 MG CAPSULE PO ONE (05:00)
[2023-05-12] MEDS: FAMOTIDINE 20 MG TABLET PO SCH (05:39)
[2023-05-12 09:33] VITALS: RESP 16
[2023-05-12] MEDS: PRENATAL VITAMINS W/ FOLIC ACID TABLET (FP) PO SCH (10:24)
[2023-05-12 13:00] VITALS: BP 116/67; PULSE 87; TEMP 97.5
== END 2023-05-12 14:52 | disposition home or self-care (01) | DRG 775 ==
LOC: YASAS 13:19 → Y6N 18:32
PROVIDERS: ADMIT Allergy & Immunology; ATTEND Allergy & Immunology
PROC: HZ2ZZZZ Detoxification Services for Substance Abuse Treatment (ICD-10-PCS; principal; 2023-05-06)
DX: F10.230 Alcohol dependence with withdrawal, uncomplicated (principal); F12.20 Cannabis dependence, uncomplicated; F17.210 Nicotine dependence, cigarettes, uncomplicated; F25.9 Schizoaffective disorder, unspecified; F43.10 Post-traumatic stress disorder, unspecified; I10 Essential (primary) hypertension; K21.9 Gastro-esophageal reflux disease without esophagitis; M17.0 Bilateral primary osteoarthritis of knee; R26.89 Other abnormalities of gait and mobility; Z86.59 Personal history of other mental and behavioral disorders; Z88.0 Allergy status to penicillin
CPT/HCPCS: 36415; 80053; 80164; 80307; 85027; 86780; 87635; Q0162